=== PATIENT | female | born 1945 | race Caucasian/White ===

== ENCOUNTER 2016-05-02 01:32 | Inpatient (IN) | payer MEDICARE, OTHER ==
[~2016-05-02] VITALS: Ht 160 cm; Wt 136.7 kg
[~2016-05-02 01:32] MED LIST: ALTA10CA3 PO; ALTA5CAP3 PO; AMLO10TA PO; ASPI1TAB PO; ATIV1TAB10 PO; BACITAB3 PO; CARV12.5 PO; CARV25TA PO; CHLO25TA PO; CIPR500S PO; CIPR500T89 PO; CORE6.25 PO; ESCI10TA2 PO; IBUP20TA PO; IBUP80TA PO; K-TA1TAB PO; KEFL500C7 PO; LASI20TA PO; LASI40TA PO; LEVA500T PO; LIDO5DIS36 TD; LOVE1INJ2 SC; LYRI75CA PO; MICR10CA PO; MILKSUS PO; MIRA3350 PO; MORP20SO PO; MORP2SY IV; NEUR300C PO; NYST100024 TOP; OXYC1TAB23 PO; PERC5TAB6 PO; PERCOCET PO; POTA20TA PO; PROT1TAB2 PO; RAMI10CA PO; RAMI5CA PO; ROPI1TAB PO; SENN8.6T54 PO; SENN8.6T7 PO; SENO8.6T10 PO; TYLE325T5 PO; VITMTA PO; ZANA4CAP PO; ZANA4TAB PO; ZOFR20TA IV; ZOFR40IN IJ; [UNRECOGNIZED DRUG - OTHER]; [UNRECOGNIZED DRUG - REMARK]; omnicef PO
[2016-05-02] MEDS ORDERED: PERCOCET 5MG/325MG TAB As Ordered ONE (03:01)
[2016-05-02 03:03] LABS: BASO # 0.2 K/mm3 (0.0-0.2); BASO % 0.8 % (0.0-1.0); EOS % 0.3 % (0.0-3.0); LARGE UNSTAINED CELL # 0.1 K/mm3 (0.0-0.4); LARGE UNSTAINED CELL % 0.6 % (0.0-4.0); LYMPH # 0.5 K/mm3 (1.5-4.5); LYMPH % 2.2 % (24.0-44.0); MEAN CORPUSCULAR HEMOGLOBIN 26.5 pg (27.0-33.0); MEAN CORPUSCULAR HGB CONC 31.7 g/dl (32.0-36.5); MEAN CORPUSCULAR VOLUME 83.6 fl (80.0-96.0); MONO # 0.7 K/mm3 (0.0-0.8); NEUTROPHILS # 16.6 K/mm3 (1.8-7.7); NEUTROPHILS % 92.1 % (36.0-66.0); PLATELET COUNT, AUTOMATED 147 k/mm3 (150-450); RED CELL DISTRIBUTION WIDTH 15.6 % (11.5-14.5)
[2016-05-02 03:05] LABS: CREATININE FOR GFR 1.24 MG/DL (0.55-1.02); GLOMERULAR FILTRATION RATE 45.7 (>45)
--- NOTE | 2016-05-02 05:20 | REPUSA ---
CLINICAL HISTORY: Edema. COMMENTS: Real time sonography with duplex doppler of the left lower extremity was performed with attention to the major deep venous structures. Evaluation reveals the left common femoral, superficial femoral and popliteal veins to be completely compressible without intraluminal thrombus. There is normal spontaneous phasic flow and augmentation. The greater saphenous/common femoral vein junction is patent. IMPRESSION: No evidence of DVT in left lower extremity.. Thank you for your kind referral of this patient.
[2016-05-02] MEDS ORDERED: ALTA5CAP3 PO (07:55)
[2016-05-02] MEDS ORDERED: MIRA3350 PO (07:56)
[2016-05-02] MEDS ORDERED: ACETAMINOPHEN 325 MG TAB As Ordered ONE ×2 (07:57→14:37)
--- NOTE | 2016-05-02 08:25 | REP ---
AP sitting and lateral chest radiographs 05/02/2016 Indication shortness of breath Comparison: AP and lateral chest radiograph 02/24/2016, and PA and lateral chest 02/13/2016 The cardiac silhouette is mildly enlarged without change there is persistent ectasia of thoracic aorta. There are diminished lung volumes . There is persistent eventration of the right hemidiaphragm .Bibasilar atelectatic changes are noted. Interstitial prominence is contributed to by portable technique and large body habitus. There are moderate to advanced degenerative changes in the thoracic spine Impression: Mild cardiomegaly without change. Bibasilar atelectasis. Prominence of the interstitium contributed to by portable technique and large body habitus. Signed by Pebbles Lo MD 05/02/2016 08:17 A
[2016-05-02 08:38] LABS: ALBUMIN 4.1 GM/DL (3.2-5.2); ALBUMIN/GLOBULIN RATIO 1.24 (1.00-1.93); BILIRUBIN,DIRECT 0.3 MG/DL (0.0-0.2); THYROXINE (T4) 10.6 UG/DL (4.5-12.0); TOTAL PROTEIN 7.4 GM/DL (6.4-8.2)
--- NOTE | 2016-05-02 08:48 | REP ---
Left tibia and fibula series l 16 Indication: Trauma Findings: Study is somewhat limited by patient positioning and overlying pacer splint The left tibial and fibular shafts are without fracture or dislocation. There is moderate tricompartment joint space narrowing within the knee. There is a large plantar calcaneal spur. Vascular calcifications, likely phleboliths identified within the left lower leg Impression: No acute fracture dislocation in the left tibial and fibular shaft. Signed by Pebbles Lo MD 05/02/2016 08:40 A
[2016-05-02] MEDS ORDERED: ISOVUE-370 76% 100ML VIAL (Q9967) As Ordered ONE (09:40)
--- NOTE | 2016-05-02 10:44 | REP ---
CTA chest 05/02/2016 Indication: Hypoxia, shortness of breath Technique: Following dynamic IV contrast enhancement with 75 ml Isovue 370 mg/ml, 3 mm contiguous spiral axial sections are performed through the chest Findings: The study is limited by large body habitus and extensive streak artifact. The thoracic aorta is without aneurysm or dissection. The study is somewhat limited by streak artifact and large body habitus. The cardiac silhouette is mildly enlarged. The pulmonary arteries are opacified through at least the lobe are pulmonary artery levels without intraluminal filling defects. The more peripheral pulmonary arteries are limited in visualization. There are scattered mediastinal nodes , mildly enlarged. There are no pathologically enlarged hilar nodes. There is dependent atelectasis within the lower lobes primarily, and to a lesser extent the dependent portion of the upper lobes. There are no alveolar infiltrates or pleural effusions. Prominence of pulmonary vasculature system with pulmonary venous hypertension. Visualized portions of liver without focal lesion. The spleen mildly enlarged 13.4 cm cranial caudal dimension. Lies portions of gallbladder without stones Impression: Limited study due to large body habitus and extensive streak artifact especially within the superior vena cava. The pulmonary arteries are opacified through the lobar artery levels bilaterally without visualized filling defect . The more peripheral pulmonary arteries cannot be adequately assessed due to limitations described above. May consider follow-up study. Bibasilar atelectasis. Pulmonary venous hypertension Mild splenomegaly Discussed with Dr. Mcarthur in ED on 05/02/16 at 1030 am Signed by Pebbles Lo MD 05/02/2016 10:37 A
[2016-05-02] MEDS: PIPERACILLIN/TAZOBACTAM SOD 3.375 GM in D5W MINI-BAG PLUS 50 ML IV SCH ×2 (14:00→20:17)
[2016-05-02] MEDS ORDERED: ZOSYN 3.375 GM VIAL (J2543) As Ordered ONE (14:23)
--- NOTE | 2016-05-02 14:23 | PHACANCOPD ---
PHARMACY VANCOMYCIN DOSING Pt Demographics Demographics Patient Age:71 , Weight:113.400 , Gender: female Adjusted Body Weight Date: 05/02/16, Adjusted Body Weight: Kg Events Past 24 Hours Events Past 24 Hours: NO: Change in CrCl, Dialysis, Diuretic Therapy, Elevation in WBC, Fever, Other, Pending Diagnostics, Pending Procedures Vancomycin Vancomycin indication: CELLULITIS Vancomycin Target Ranges: 15-20 mcg/ml Vancomycin Load Y/N: Yes Load Dose Date Time Vancomycin Load Dose: 2GRAMS Date: 07/03/15 Time: 1413 Vancomycin Dose Date: 05/03/16. Current Vancomycin Dose: [1GRAM IV Q18H @0900] Intermittent Dosing?: No Labs Labs Item Value Date Time White Blood Count 18.0 K/mm3 H 05/02/16 0155 Creatinine 1.24 MG/DL H 05/02/16 0155 Micro Microbiology 05/02/16 Blood Culture, Received Pending 05/02/16 Blood Culture, Received Pending 05/02/16 Influenza Virus Type A Antigen - Final, Complete 05/02/16 Influenza Virus Type B Antigen - Final, Complete 05/02/16 Urine Culture, Received Pending Creatinine Clearance Date:05/02/16. Creatinine Clearance: [38.12]. Pending Labs VANCO TROUGH 05/04/16 @1999 Assessment and Plan Maintaining Current Dose?: Yes Reason for dose change: No Dose Change Pharmacist Note Pharmacist Note Date: 05/02/16. Pharmacist note: Patient will be administered a 2 gram loading dose followed by 1 gram every 18 hours starting tomorrow ( 05/03 @0900). Trough is scheduled for 05/04 @1999. Blood and urine cultures are pending. Dosing was based on a previous admission in February in which the patient was ordered on vanco. Continue current dosing and adjust as needed. MILDRED [facility] May 02, 2016 14:23
[2016-05-02] MEDS ORDERED: hydrALAZINE INJ 20 MG/ML VIAL As Ordered ONE (14:37)
[2016-05-02] MEDS ORDERED: CARVedilol 6.25 MG TAB As Ordered ONE (14:37)
[2016-05-02] MEDS ORDERED: RAMIPRIL 5 MG CAP As Ordered ONE (14:37)
[2016-05-02] MEDS ORDERED: SENOKOT S TAB PO PRN (14:45)
[2016-05-02] MEDS ORDERED: MIRALAX *UNIT DOSE* 17GM PACKET PO PRN (14:45)
[2016-05-02] MEDS: VANCOMYCIN HCL 1,000 MG, VIAL MATE ADAPTER 1 EACH in D5W 250 ML IV SCH (15:00)
[2016-05-02] MEDS ORDERED: VANCOMYCIN HCL 1,000 MG, VIAL MATE ADAPTER 1 EACH in D5W 250 ML IV ONE (16:00)
[2016-05-02] MEDS ORDERED: VANCOMYCIN 1000 MG/20 ML VIAL (J3370) As Ordered ONE (16:03)
--- NOTE | 2016-05-02 16:17 | EDDOCDS ---
Nurse's Notes [facility] Name: Mirella Fournier Age: 71 yrs Sex: Female : 1945 Arrival Date: 05/02/2016 Time: 01:32 Bed 9 Private MD: Alo eDy B Diagnosis: Fever of other and unknown origin Presentation: 05/02 01:36 Presenting complaint: EMS states: pt was moving pt from bathroom back into her chair. mlc pt missed the chair and lowered her to the floor. states pt was weak on the left side. EMS found no symptoms. pt c/o weakness. Adult Sepsis Screening: The patient does not have new or worsening altered mentation. Patient's respiratory rate is less than 22. Systolic blood pressure is greater than 100. Patient has a qSOFA score of 0- Negative Sepsis Screen. Suicide/Homicide risk assessment- the patient denies having any suicidal and/or homicidal ideations and does not present with any other emotional, behavioral or mental health complaints. 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 Transition of care: patient was not received from another setting of care. 01:36 Acuity: [place] Level 3 [facility] 01:36 Method Of Arrival: Ambulance [facility] Triage Assessment: 01:45 General: Appears in no apparent distress, comfortable, Behavior is cooperative, mlc pleasant. Pain: Location: low back area, pelvis, right leg and left leg Pain currently is 6 out of 10 on a pain scale. The patient is triaged at the bedside. See Assessment in Nurses Notes section of ED record. Neurological: Level of Consciousness is awake, alert, obeys commands, Oriented to person, place, time. Neurological: Reports headache. Respiratory: Airway is patent Respiratory effort is even, unlabored, Respiratory pattern is regular. GI: Reports nausea. Derm: Skin is normal. Historical: - Allergies: SULFA (SULFONAMIDES); - Home Meds: 1. Altace 5 mg Oral cap 1 cap once daily 2. aspirin 81 mg Oral chew 1 tab once daily 3. Ativan 0.5 mg Oral tab 1 tab 3 times per day as needed 4. carvedilol 25 mg oral tab 2 times per day 5. furosemide 40 mg oral tab 1 tab 2 times per day 6. Lexapro 10 mg Oral tab 1 tab once daily 7. Lyrica 75 mg Oral 1 cap 2 times per day 8. Miralax 17 gram/dose Oral powd once daily 9. multivitamin Oral cap 1 tab daily 10. Percocet 5-325 mg Oral tab 1 tab every 8 hours 11. potassium chloride 20 mEq Oral TbER 1 tab once daily 12. Protonix 40 mg oral TbEC 1 tab once daily 13. ropinirole 1 mg oral tab 3 times per day 14. Senna Plus 8.6-50 mg oral tab 1 tabs once daily - PMHx: Hypertension; intevertebral disc displacement; Spinal Stenosis; Parkinson's Disease; spondylosis; - PSHx: eye surgery; Tonsillectomy; - Social history: Smoking status: Patient states was never smoker of tobacco. No barriers to communication noted, The patient speaks fluent Macanese. - Family history: Not pertinent, No immediate family members are acutely ill. - : The pt / caregiver states he / she is not on anticoagulants. Home medication list is obtained from the patient, [email or web address] import data. - Exposure Risk Screening:: None identified. Screenin:46 Screening information is obtained from the patient, family members. Fall risk: At risk mlc due to gait disturbance, prior history of falls. Assistance ADL's: Requires assistance with meal preparation, this assistance is provided by family members, bathing, assistance is provided by family members, dressing, assistance is provided by family members, toileting, assistance is provided by housework, assistance is provided by family members. Abuse/DV Screen: The patient / caregiver reports he/she is: not in a situation that causes fear, pain or injury. Nutritional screening: No deficits noted. Advance Directives: Currently, there is no health care proxy. There is no active DNR order. There is no living will. There is no Power of Cook Mess. home support is adequate. Assessment: 01:51 General: Appears in no apparent distress, comfortable, Behavior is cooperative. Pain: mlc Pain currently is 6 out of 10 on a pain scale. Neurological: Level of Consciousness is awake, alert, Oriented to person, place, time, Helicopter Engineer are equal bilaterally Speech is normal, Facial symmetry appears normal, Pupils are PERRLA. Cardiovascular: Heart tones S1 S2 present. Respiratory: Airway is patent Respiratory effort is even, unlabored, Respiratory pattern is regular, Breath sounds are diminished bilaterally. GI: Abdomen is obese, Bowel sounds present X 4 quads. Abd is soft and non tender X 4 quads. Derm: Skin is normal. 02:35 Adult Sepsis Screening:. js15 03:26 Derm: Skin excoriated area under abdominal fold. mlc 03:49 Adult Sepsis Screening: The patient does not have new or worsening altered mentation. [facility] Patient's respiratory rate is less than 22. Systolic blood pressure is greater than 100. Patient has a qSOFA score of 0- Negative Sepsis Screen. 04:46 Reassessment: Patient appears in no apparent distress at this time. no changes since [facility] prior. pt resting comfortably in bed. resp easy/unlabored. . 07:15 General: Appears ill, Behavior is cooperative. Pain: Location: all over Pain currently mcp is 5 out of 10 on a pain scale. Neurological: Level of Consciousness is awake, alert, Oriented to person, place, time, Speech is normal. Cardiovascular: Rhythm is sinus rhythm No ectopy. Respiratory: Airway is patent Respiratory effort is even, labored. Derm: Skin is dry, Skin is pink, Skin temperature is warm. 08:15 General: Appears ill, Behavior is cooperative. Neurological: Level of Consciousness is mcp awake, alert, Oriented to person, place, time, Speech is normal. Respiratory: Airway is patent Respiratory effort is even, labored. Derm: Skin is pink, warm & dry. 09:10 General: Appears in no apparent distress, to be sleeping. Behavior is cooperative, jo3 quiet. General: Awaiting admission at this time . Neurological: No deficits noted. Cardiovascular: Rhythm is sinus rhythm No ectopy. Respiratory: Airway is patent Respiratory effort is even, unlabored. Derm: Skin is pink, warm & dry. 10:12 Reassessment: Patient appears in no apparent distress at this time. Taken to Ct for jo3 angio study at this time. Tolerated well. returned to room and positioned for comfort by this chart writer and Karen Davis, OCEANOLOGIST. Admission nurse now at bedside. Pt aware of plan of care . 11:30 General: Appears in no apparent distress, incontinent of urine. lower abdominal fold, rs3 inguinal area and perineal area has excoriated skin. skin care given. repositioned patient in bed. 12:30 General: Appears in no apparent distress, Behavior is cooperative, denies of distress. rs3 at bedside. waiting for admission room availability. Temp 100.2. cold wash cloth applied to forehead. 13:13 Reassessment: Patient appears in no apparent distress at this time. Patient denies pain rs3 at this time. Patient states feeling better. Patient states symptoms have improved. 14:30 General: Appears in no apparent distress, Behavior is cooperative, Temp rechecked. rs3 101.6. blood pressure systolic 183/74. attending provider made aware. ordered meds given. 15:30 General: Appears in no apparent distress, denies of pain/distress. refused lunch. rs3 ordered antibiotic infusing. . 16:15 Reassessment: Patient appears in no apparent distress at this time. Patient denies pain rs3 at this time. Patient states feeling better. Patient states symptoms have improved. General:. Social Work Consult: 06:37 Social Work Note: [facility] Transportation has been paged to discuss assisting PT with jfb transport home. Vital Signs: 01:43 BP 177 / 81; Pulse 93; Resp 18; Temp 98.7(O); Pulse Ox 88% on R/A; Weight 113.4 kg (R); rn1 Height 5 ft. 3 in. (160.02 cm); Pain 6/10; 01:50 Pulse 94 MON; Pulse Ox 97% on 2 lpm NC; js15 01:58 BP 179 / 73 (auto/); mlc 01:59 Pulse 88 MON; Pulse Ox 96% ; mlc 02:13 BP 170 / 64 (auto/); mlc 02:14 Pulse 90 MON; Pulse Ox 94% ; mlc 02:28 BP 158 / 71 (auto/); mlc 02:29 Pulse 86 MON; Pulse Ox 94% ; mlc 02:43 BP 150 / 57 (auto/); mlc 02:44 Pulse 100 MON; Pulse Ox 95% ; mlc 02:58 BP 139 / 65 (auto/); mlc 02:59 Pulse 98 MON; Pulse Ox 94% ; mlc 03:13 BP 152 / 68 (auto/); mlc 03:14 Pulse 102 MON; Pulse Ox 92% ; mlc 03:28 BP 129 / 60 (auto/); mlc 03:29 Pulse 96 MON; Pulse Ox 92% ; mlc 03:43 BP 116 / 55 (auto/); mlc 03:44 Pulse 82 MON; Pulse Ox 92% ; mlc 03:58 BP 115 / 55 (auto/); mlc 04:13 BP 100 / 52 (auto/); mlc 04:28 BP 111 / 55 (auto/); mlc 04:31 Pulse 78 MON; Pulse Ox 93% ; mlc 04:43 BP 126 / 60 (auto/); mlc 04:44 Pulse 82 MON; Pulse Ox 94% ; mlc 08:09 BP 147 / 95; Pulse 76; Resp 32; Temp 101.2(O); Pulse Ox 85% on R/A; mcp 08:10 Pulse Ox 95% on 4 lpm NC; mcp 11:37 BP 140 / 63 (auto/); rs3 11:37 Pulse 90 MON; rs3 12:07 BP 145 / 65 (auto/); rs3 12:07 Pulse 90 MON; rs3 12:37 BP 158 / 71 (auto/); rs3 12:38 Pulse 88 MON; Pulse Ox 95% ; rs3 13:07 BP 166 / 73 (auto/); rs3 13:08 Pulse 86 MON; Resp 20; Pulse Ox 96% ; rs3 13:14 Temp 100.2; rs3 13:37 BP 187 / 75 (auto/); rs3 13:38 Pulse 88 MON; Pulse Ox 95% ; rs3 14:07 BP 183 / 77 (auto/); rs3 14:08 BP 166 / 75; Pulse 86 MON; Resp 22; Temp 100.6; Pulse Ox 95% on NC; Pain 2/10; rs3 14:37 BP 186 / 74 (auto/); rs3 14:38 Pulse 86 MON; Temp 101.6(O); rs3 14:52 BP 178 / 73 (auto/); rs3 14:53 Pulse 88 MON; Pulse Ox 94% ; rs3 15:03 Pulse 88 MON; Pulse Ox 96% ; rs3 15:07 BP 167 / 71 (auto/); rs3 15:08 Pulse 88 MON; Pulse Ox 95% ; rs3 15:22 BP 135 / 60 (auto/); rs3 15:22 Pulse 86 MON; Pulse Ox 94% ; rs3 15:37 BP 119 / 56 (auto/); rs3 15:38 Pulse 84 MON; Pulse Ox 95% ; rs3 15:58 BP 113 / 58 (auto/); rs3 15:58 BP 113 / 58; Pulse 90 MON; Resp 24; Temp 100.2; Pulse Ox 96% ; rs3 16:09 Temp 100.2(O); rs3 01:43 Body Mass Index 44.29 (113.40 kg, 160.02 cm) rn1 Vitals: 01:45 Log In Time N/A - ambulance arrival. [facility] ED Course: 01:34 Patient visited by Orlin Robert PCA. kb5 01:34 Alo Dey is Private Physician. kb5 01:34 Patient moved to Waiting kb5 01:34 Patient moved to 9 kb5 01:41 Triage Initiated mlc 01:46 child monitor on. Pulse ox on. NIBP on. mlc 01:48 Patient visited by Helen Zapata RN. mlc 01:49 Rajan Welsh DO is Attending Physician. cs11 01:49 Patient visited by Rajan Welsh DO. cs11 01:56 Inserted saline lock: 18 gauge in right antecubital area The patient tolerated the js15 procedure well. 01:57 Patient visited by Helen Zapata RN. mlc 01:58 The patient / caregiver is instructed regarding the plan of care and ED course. [facility] 02:05 [facility] Payment Agreement was scanned into [employer] and attached to record. lja 02:11 Patient name changed from Mirella\S\\S\Fournier\S\ to Mirella\S\A\S\Fournier. EDMS 03:07 Patient moved to Ultrasound br3 03:17 Patient moved to 9 br3 03:26 Urine Culture Sent. mlc 03:26 Urinalysis: catheterize. thanks Sent. mlc 03:26 Straight cath inserted 16 Fr. Specimen obtained. returned clear yellow urine. Patient [facility] tolerated well. 03:27 Patient visited by Helen Zapata RN. mlc 04:48 Patient visited by Helen Zapata RN. mlc 04:52 Alo Dey is Referral Physician. cs11 05:29 Ultrasound LE Unilateral R/O DVT Returned. EDMS 07:16 Attending Physician role handed off by Rajan Welsh DO sd1 07:16 Azucena Robertson MD is Attending Physician. sd1 08:12 Patient visited by Adrienne Bourne RN. [facility] 08:12 Inserted saline lock: 20 gauge in left antecubital area and blood collected. The [facility] patient tolerated the procedure well. Labs drawn. (by ED staff). Sent per order to lab. Labs/Blood culture drawn. 08:16 Patient visited by Adrienne Bourne RN. [facility] 08:43 Chest, 2 View (pa\E\lat) Returned. EDMS 09:23 Tibia/Fibula Returned. EDMS 09:29 Patient visited by Myrtle Apodaca RN. jo3 09:42 Lashay Carcamo is Hospitalizing Provider. sd1 09:47 PCR was scanned into [employer] and attached to record. gb 10:13 Patient visited by Myrtle Apodaca RN. jo3 10:46 CT Chest Angio R/O PE Returned. EDMS 11:00 Ketty Harp,RICCARDO is Primary Nurse. rs3 12:47 No procedures done that require assistance. rs3 14:22 T-Sheet-- Draft Copy was scanned into [employer] and attached to record. gb 14:55 Radiology Report was scanned into [employer] and attached to record. gb Administered Medications: 03:05 Drug: oxyCODONE-acetaminophen 1 tabs [oxycodone-acetaminophen 5 mg-325 mg tablet (1 mlc tabs)] Route: PO; 08:09 Drug: Acetaminophen 650 mg [acetaminophen 325 mg tablet (2 tabs)] Route: PO; [facility] 13:14 Follow up: Temp 100.2 rs3 14:45 Drug: carvedilol 25 mg [carvedilol 6.25 mg tablet (4 tabs)] Route: PO; rs3 14:45 Drug: Ramipril 5 mg [ramipril 5 mg capsule (1 caps)] Route: PO; rs3 14:45 Drug: hydrALAZINE 10 mg [hydralazine 20 mg/mL injection solution] Route: IV; Rate: rs3 bolus; Site: left antecubital; 16:09 Follow up: IV Status: Completed infusion rs3 14:46 Drug: Piperacillin-Tazobactam 3.375 grams [piperacillin-tazobactam 3.375 gram rs3 intravenous solution] Route: IVPB; Infused Over: 30 mins; Site: left antecubital; 16:09 Follow up: IV Status: Completed infusion rs3 14:46 Drug: Acetaminophen 650 mg [acetaminophen 325 mg tablet (2 tabs)] Route: PO; rs3 16:09 Follow up: Temp 100.2 Oral rs3 16:08 Drug: vancomycin 1 grams [vancomycin 1,000 mg intravenous injection] Route: IVPB; rs3 Infused Over: 60 mins; Site: left antecubital; Order Results: Lab Order: CBC with Diff; SPEC'M 05/02/16 01:55 Test: WHITE BLOOD COUNT; Value: 18.0; Range: 4.0-10.0; Abnormal: Above high normal; Units: K/mm3; Status: F Test: RED BLOOD COUNT; Value: 4.93; Range: 4.00-5.40; Units: M/mm3; Status: F Test: HEMOGLOBIN; Value: 13.0; Range: 12.0-16.0; Units: g/dl; Status: F Test: HEMATOCRIT; Value: 41.2; Range: 36.0-47.0; Units: %; Status: F Test: MEAN CORPUSCULAR VOLUME; Value: 83.6; Range: 80.0-96.0; Units: fl; Status: F Test: MEAN CORPUSCULAR HEMOGLOBIN; Value: 26.5; Range: 27.0-33.0; Abnormal: Below low normal; Units: pg; Status: F Test: MEAN CORPUSCULAR HGB CONC; Value: 31.7; Range: 32.0-36.5; Abnormal: Below low normal; Units: g/dl; Status: F Test: RED CELL DISTRIBUTION WIDTH; Value: 15.6; Range: 11.5-14.5; Abnormal: Above high normal; Units: %; Status: F Test: PLATELET COUNT, AUTOMATED; Value: 147; Range: 150-450; Abnormal: Below low normal; Units: k/mm3; Status: F Test: NEUTROPHILS %; Value: 92.1; Range: 36.0-66.0; Abnormal: Above high normal; Units: %; Status: F Test: LYMPH %; Value: 2.2; Range: 24.0-44.0; Abnormal: Below low normal; Units: %; Status: F Test: MONO %; Value: 4.0; Range: 0.0-5.0; Units: %; Status: F Test: EOS %; Value: 0.3; Range: 0.0-3.0; Units: %; Status: F Test: BASO %; Value: 0.8; Range: 0.0-1.0; Units: %; Status: F Test: LARGE UNSTAINED CELL %; Value: 0.6; Range: 0.0-4.0; Units: %; Status: F Test: NEUTROPHILS #; Value: 16.6; Range: 1.8-7.7; Abnormal: Above high normal; Units: K/mm3; Status: F Test: LYMPH #; Value: 0.5; Range: 1.5-4.5; Abnormal: Below low normal; Units: K/mm3; Status: F Test: MONO #; Value: 0.7; Range: 0.0-0.8; Units: K/mm3; Status: F Test: EOS #; Value: 0.0; Range: 0.0-0.50; Units: K/mm3; Status: F Test: BASO #; Value: 0.2; Range: 0.0-0.2; Units: K/mm3; Status: F Test: LARGE UNSTAINED CELL #; Value: 0.1; Range: 0.0-0.4; Units: K/mm3; Status: F Lab Order: MED Profile; [facility]' 05/02/16 01:55 Test: GLUCOSE, FASTING; Value: 132; Range: 80-110; Abnormal: Above high normal; Units: MG/DL; Status: F Test: BLOOD UREA NITROGEN; Value: 21; Range: 7-18; Abnormal: Above high normal; Units: MG/DL; Status: F Test: CREATININE FOR GFR; Value: 1.24; Range: 0.55-1.02; Abnormal: Above high normal; Units: MG/DL; Status: F Test: GLOMERULAR FILTRATION RATE; Value: 45.7; Range: >45; Status: F Test: SODIUM LEVEL; Value: 143; Range: 136-145; Units: MEQ/L; Status: F Test: POTASSIUM SERUM; Value: 5.0; Range: 3.5-5.1; Units: MEQ/L; Status: F Test: CHLORIDE LEVEL; Value: 104; Range: 98-107; Units: MEQ/L; Status: F Test: CARBON DIOXIDE LEVEL; Value: 29; Range: 21-32; Units: MEQ/L; Status: F Test: ANION GAP; Value: 10; Range: 8-16; Units: MEQ/L; Status: F Test: CALCIUM LEVEL; Value: 9.0; Range: 8.8-10.2; Units: MG/DL; Status: F Test Note: ; Units are mL/min/1.73 m2 Chronic Kidney Disease Staging per NKF: Stage I & II GFR >=60 Normal to Mildly Decreased Stage III GFR 30-59 Moderately Decreased Stage IV GFR 15-29 Severely Decreased Stage V GFR <15 Very Little GFR Left ESRD GFR <15 on [employer] Lab Order: Urinalysis: catheterize. thanks; SPEC'M 05/02/16 03:21 Test: APPEARANCE, URINE; Value: CLEAR; Range: CLEAR; Status: F Test: COLOR, URINE; Value: YELLOW; Range: YELLOW; Status: F Test: PH,URINE; Value: 7.0; Range: 5.0-9.0; Units: UNITS; Status: F Test: SPECIFIC GRAVITY URINE AUTO; Value: 1.016; Range: 1.002-1.035; Status: F Test: PROTEIN, URINE AUTO; Value: NEGATIVE; Range: NEGATIVE; Units: mg/dL; Status: F Test: GLUCOSE, URINE (UA) AUTO; Value: NEGATIVE; Range: NEGATIVE; Units: mg/dL; Status: F Test: KETONE, URINE AUTO; Value: TRACE; Range: NEGATIVE; Abnormal: Above high normal; Units: mg/dL; Status: F Test: UROBILINOGEN, URINE AUTO; Value: 0.2; Range: 0.0-2.0; Units: mg/dL; Status: F Test: BILIRUBIN, URINE AUTO; Value: NEGATIVE; Range: NEGATIVE; Status: F Test: NITRITE, URINE AUTO; Value: NEGATIVE; Range: NEGATIVE; Status: F Test: LEUKOCYTE ESTERASE, URINE AUTO; Value: NEGATIVE; Range: NEGATIVE; Status: F Test: BLOOD, URINE BLOOD; Value: NEGATIVE; Range: NEGATIVE; Status: F Test: WBC, URINE AUTO; Value: 0; Range: 0-3; Units: /HPF; Status: F Test: RBC, URINE AUTO; Value: 1; Range: 0-3; Units: /HPF; Status: F Test: BACTERIA, URINE AUTO; Value: NEGATIVE; Range: NEGATIVE; Status: F Test: SQUAMOUS EPITHELIAL CELL UR AU; Value: 0; Range: 0-6; Units: /HPF; Status: F Test: MUCUS, URINE; Value: SMALL; Range: NEGATIVE; Status: F Test: HYALINE CAST, URINE AUTO; Value: 0; Range: 0-1; Units: /LPF; Status: F Lab Order: Lactic Acid (Crouch tube on ice); SPEC'M 05/02/16 07:53 Test: LACTIC ACID LEVEL, LACTATE; Value: 1.3; Range: 0.4-2.0; Units: MMOL/L; Status: F Lab Order: -Influenza A&B Rapid Antigen - Nose; SPEC'M 05/02/16 07:53 Test: INFLUENZA A RAPID SCR by ICA; Value: INFLUENZA A RESULTS NEGATIVE; Status: F Test: INFLUENZA A RAPID SCR by ICA; Value: Comments:; Status: F Test: INFLUENZA B RAPID SCR by ICA; Value: INFLUENZA B RESULTS NEGATIVE; Status: F Test Note: ; The Influenza test is a direct rapid immunoassay for the qualitative detection of Influenza viral antigen. Cell culture (Viral Culture) testing should be considered to confirm NEGATIVE results and to assist in detecting other viruses that can provide similar clinical symptoms. Please contact the lab within 24 [phone] ([phone] if confirmatory testing is desired. Lab Order: Liver Profile; SPEC'M 05/02/16 07:53 Test: AST/SGOT; Value: 18; Range: 15-37; Units: U/L; Status: F Test: ALT/SGPT; Value: 18; Range: 12-78; Units: U/L; Status: F Test: ALKALINE PHOSPHATASE; Value: 100; Range: 45-117; Units: U/L; Status: F Test: BILIRUBIN,TOTAL; Value: 1.0; Range: 0.2-1.0; Units: MG/DL; Status: F Test: BILIRUBIN,DIRECT; Value: 0.3; Range: 0.0-0.2; Abnormal: Above high normal; Units: MG/DL; Status: F Test: TOTAL PROTEIN; Value: 7.4; Range: 6.4-8.2; Units: GM/DL; Status: F Test: ALBUMIN; Value: 4.1; Range: 3.2-5.2; Units: GM/DL; Status: F Test: ALBUMIN/GLOBULIN RATIO; Value: 1.24; Range: 1.00-1.93; Status: F Lab Order: Lipase; SPEC'M 05/02/16 07:53 Test: LIPASE; Value: 86; Range: 73-393; Units: U/L; Status: F Lab Order: THYROID PROFILE; SPEC'M 05/02/16 07:53 Test: T UPTAKE; Value: 31; Range: 30-39; Units: %; Status: F Test: THYROXINE (T4); Value: 10.6; Range: 4.5-12.0; Units: UG/DL; Status: F Test: FREE THYROXINE INDEX; Value: 3.3; Range: 1.3-4.8; Units: %; Status: F Test: THYROID STIMULATING HORMONE; Value: 2.200; Range: 0.358-3.740; Units: uIU/ML; Status: F Lab Order: LACTIC ACID LEVEL, LACTATE; SPEC'M 05/02/16 14:38 Test: LACTIC ACID LEVEL, LACTATE; Value: 1.1; Range: 0.4-2.0; Units: MMOL/L; Status: F Radiology Order: Tibia/Fibula Test: Tibia/Fibula REASON FOR EXAMINATION: Trauma; Left tibia and fibula series ; ; Indication: Trauma; ; Findings: Study is somewhat limited by patient positioning and overlying pacer; splint; ; The left tibial and fibular shafts are without fracture or dislocation. There is; moderate tricompartment joint space narrowing within the knee. There is a large; plantar calcaneal spur.; ; Vascular calcifications, likely phleboliths identified within the left lower leg; ; Impression:; ; No acute fracture dislocation in the left tibial and fibular shaft.; ; ; Signed by; Pebbles Lo MD 05/02/2016 08:40 A; Radiology Order: Ultrasound LE Unilateral R/O DVT Test: Ultrasound LE Unilateral R/O DVT REASON FOR EXAMINATION: Deformity/Swelling; ; CLINICAL HISTORY: Edema.; COMMENTS:; Real time sonography with duplex doppler of the left lower extremity was performed with attention to; the major deep venous structures.; Evaluation reveals the left common femoral, superficial femoral and popliteal veins to be completely; compressible without intraluminal thrombus. There is normal spontaneous phasic flow and augmentation.; The greater saphenous/common femoral vein junction is patent.; IMPRESSION:; No evidence of DVT in left lower extremity..; Thank you for your kind referral of this patient.; ; Radiology Order: Chest, 2 View (pa\E\lat) Test: Chest, 2 View (pa\E\lat) REASON FOR EXAMINATION: Shortness of Breath; AP sitting and lateral chest radiographs 05/02/2016; ; Indication shortness of breath; ; Comparison: AP and lateral chest radiograph 02/24/2016, and PA and lateral chest; 02/13/2016; ; The cardiac silhouette is mildly enlarged without change there is persistent; ectasia of thoracic aorta. There are diminished lung volumes . There is; persistent eventration of the right hemidiaphragm .Bibasilar atelectatic changes; are noted. Interstitial prominence is contributed to by portable technique and; large body habitus.; ; There are moderate to advanced degenerative changes in the thoracic spine; ; Impression:; ; Mild cardiomegaly without change. Bibasilar atelectasis. Prominence of the; interstitium contributed to by portable technique and large body habitus.; ; ; ; ; Signed by; Pebbles Lo MD 05/02/2016 08:17 A; Radiology Order: CT Chest Angio R/O PE Test: CT Chest Angio R/O PE REASON FOR EXAMINATION: hypoxia SOB; CTA chest 05/02/2016; ; Indication: Hypoxia, shortness of breath; ; Technique: Following dynamic IV contrast enhancement with 75 ml Isovue 370; mg/ml, 3 mm contiguous spiral axial sections are performed through the chest; ; Findings: The study is limited by large body habitus and extensive streak; artifact. The thoracic aorta is without aneurysm or dissection. The study is; somewhat limited by streak artifact and large body habitus. The cardiac; silhouette is mildly enlarged. The pulmonary arteries are opacified through at; least the lobe are pulmonary artery levels without intraluminal filling defects.; The more peripheral pulmonary arteries are limited in visualization. There are; scattered mediastinal nodes , mildly enlarged. There are no pathologically; enlarged hilar nodes.; ; There is dependent atelectasis within the lower lobes primarily, and to a lesser; extent the dependent portion of the upper lobes. There are no alveolar; infiltrates or pleural effusions. Prominence of pulmonary vasculature system; with pulmonary venous hypertension.; ; Visualized portions of liver without focal lesion. The spleen mildly enlarged; 13.4 cm cranial caudal dimension. Lies portions of gallbladder without stones; ; Impression:; ; Limited study due to large body habitus and extensive streak artifact especially; within the superior vena cava. The pulmonary arteries are opacified through the; lobar artery levels bilaterally without visualized filling defect . The more; peripheral pulmonary arteries cannot be adequately assessed due to limitations; described above. May consider follow-up study.; ; Bibasilar atelectasis. Pulmonary venous hypertension; ; Mild splenomegaly; ; Discussed with Dr. Mcarthur in ED on 05/02/16 at 1030 am; ; ; ; ; Signed by; Pebbles Lo MD 05/02/2016 10:37 A; Outcome: 04:53 Discharge ordered by Provider. cs11 09:42 Decision to Hospitalize by Provider. sd1 12:47 Condition: stable. rs3 16:10 Discharge Assessment: patient administered narcotics - no. The following High Risk 3 Discharge criteria are identified: None. Admitted to PCU accompanied by nurse, accompanied by tech, via stretcher, with oxygen, on monitor, with chart. No special radiology studies were completed. Admission hand-off: Report Faxed Fax receipt verified by unit staff. Property :Personal belongings accompany Pt. 16:16 Patient left the ED. rs3 Signatures: Dispatcher [employer] EDMS Azucena Robertson MD MD sd1 Adrienne Bourne, RN RN Catina Lynn, Devon Reg Myrtle Canela RN RN jo3 Orlin Robert, OCEANOLOGIST OCEANOLOGIST kb5 Ketty HarpRN RN rs3 Michelle Lou br3 oCnnie Sequeira, PSA PSA jfb Rajan Welsh, DO DO cs11 Helen Zapata,Kelli Valerio RN,RN RN Isaiah Barboza rn1 Erin Woodward Corrections: (The following items were deleted from the chart) 12:47 12:47 Discharge Assessment: patient administered narcotics - yes. Patient was admitted rs3 to the hospital or transferred to another facility. rs3 12:47 12:47 The following High Risk Discharge criteria are identified: None. Admitted to OR rs3 accompanied by nurse, family with patient, via stretcher, on monitor, with chart, rs3 12:47 12:47 No special radiology studies were completed 3 3 :47 12:47 Property :Personal belongings accompany Pt. rs3 3 1247 12:47 Admission hand-off: Report called to or staff 3 3 MTDD
--- NOTE | 2016-05-02 16:17 | EDDOCDS ---
Physician Documentation [facility] Name: Mirella Fournier Age: 71 yrs Sex: Female : 1945 Arrival Date: 05/02/2016 Time: 01:32 Bed 9 Private MD: Alo Dey B Disposition: 05/02/16 09:42 Hospitalization ordered by Lashay Carcamo for Inpatient Admission. Preliminary diagnosis is Fever of other and unknown origin. - Bed requested for PCU. - Status is Inpatient Admission. rs3 - Condition is Stable. - Problem is new. - Symptoms are unchanged. Historical: - Allergies: SULFA (SULFONAMIDES); - Home Meds: 1. Altace 5 mg Oral cap 1 cap once daily 2. aspirin 81 mg Oral chew 1 tab once daily 3. Ativan 0.5 mg Oral tab 1 tab 3 times per day as needed 4. carvedilol 25 mg oral tab 2 times per day 5. furosemide 40 mg oral tab 1 tab 2 times per day 6. Lexapro 10 mg Oral tab 1 tab once daily 7. Lyrica 75 mg Oral 1 cap 2 times per day 8. Miralax 17 gram/dose Oral powd once daily 9. multivitamin Oral cap 1 tab daily 10. Percocet 5-325 mg Oral tab 1 tab every 8 hours 11. potassium chloride 20 mEq Oral TbER 1 tab once daily 12. Protonix 40 mg oral TbEC 1 tab once daily 13. ropinirole 1 mg oral tab 3 times per day 14. Senna Plus 8.6-50 mg oral tab 1 tabs once daily - PMHx: Hypertension; intevertebral disc displacement; Spinal Stenosis; Parkinson's Disease; spondylosis; - PSHx: eye surgery; Tonsillectomy; - Social history: Smoking status: Patient states was never smoker of tobacco. No barriers to communication noted, The patient speaks fluent Sinhala. - Family history: Not pertinent, No immediate family members are acutely ill. - : The pt / caregiver states he / she is not on anticoagulants. Home medication list is obtained from the patient, miDrive import data. - Exposure Risk Screening:: None identified. Vital Signs: 05/02 01:43 BP 177 / 81; Pulse 93; Resp 18; Temp 98.7(O); Pulse Ox 88% on R/A; Weight 113.4 kg / rn1 250 lbs (R); Height 5 ft. 3 in. (160.02 cm); Pain 6/10; 01:50 Pulse 94 MON; Pulse Ox 97% on 2 lpm NC; js15 01:58 BP 179 / 73 (auto/); mlc 01:59 Pulse 88 MON; Pulse Ox 96% ; mlc 02:13 BP 170 / 64 (auto/); mlc 02:14 Pulse 90 MON; Pulse Ox 94% ; mlc 02:28 BP 158 / 71 (auto/); mlc 02:29 Pulse 86 MON; Pulse Ox 94% ; mlc 02:43 BP 150 / 57 (auto/); mlc 02:44 Pulse 100 MON; Pulse Ox 95% ; mlc 02:58 BP 139 / 65 (auto/); mlc 02:59 Pulse 98 MON; Pulse Ox 94% ; mlc 03:13 BP 152 / 68 (auto/); mlc 03:14 Pulse 102 MON; Pulse Ox 92% ; mlc 03:28 BP 129 / 60 (auto/); mlc 03:29 Pulse 96 MON; Pulse Ox 92% ; mlc 03:43 BP 116 / 55 (auto/); mlc 03:44 Pulse 82 MON; Pulse Ox 92% ; mlc 03:58 BP 115 / 55 (auto/); mlc 04:13 BP 100 / 52 (auto/); mlc 04:28 BP 111 / 55 (auto/); mlc 04:31 Pulse 78 MON; Pulse Ox 93% ; mlc 04:43 BP 126 / 60 (auto/); mlc 04:44 Pulse 82 MON; Pulse Ox 94% ; mlc 08:09 BP 147 / 95; Pulse 76; Resp 32; Temp 101.2(O); Pulse Ox 85% on R/A; mcp 08:10 Pulse Ox 95% on 4 lpm NC; mcp 11:37 BP 140 / 63 (auto/); rs3 11:37 Pulse 90 MON; rs3 12:07 BP 145 / 65 (auto/); rs3 12:07 Pulse 90 MON; rs3 12:37 BP 158 / 71 (auto/); rs3 12:38 Pulse 88 MON; Pulse Ox 95% ; rs3 13:07 BP 166 / 73 (auto/); rs3 13:08 Pulse 86 MON; Resp 20; Pulse Ox 96% ; rs3 13:14 Temp 100.2; rs3 13:37 BP 187 / 75 (auto/); rs3 13:38 Pulse 88 MON; Pulse Ox 95% ; rs3 14:07 BP 183 / 77 (auto/); rs3 14:08 BP 166 / 75; Pulse 86 MON; Resp 22; Temp 100.6; Pulse Ox 95% on NC; Pain 2/10; rs3 14:37 BP 186 / 74 (auto/); rs3 14:38 Pulse 86 MON; Temp 101.6(O); rs3 14:52 BP 178 / 73 (auto/); rs3 14:53 Pulse 88 MON; Pulse Ox 94% ; rs3 15:03 Pulse 88 MON; Pulse Ox 96% ; rs3 15:07 BP 167 / 71 (auto/); rs3 15:08 Pulse 88 MON; Pulse Ox 95% ; rs3 15:22 BP 135 / 60 (auto/); rs3 15:22 Pulse 86 MON; Pulse Ox 94% ; rs3 15:37 BP 119 / 56 (auto/); rs3 15:38 Pulse 84 MON; Pulse Ox 95% ; rs3 15:58 BP 113 / 58 (auto/); rs3 15:58 BP 113 / 58; Pulse 90 MON; Resp 24; Temp 100.2; Pulse Ox 96% ; rs3 16:09 Temp 100.2(O); rs3 01:43 Body Mass Index 44.29 (113.40 kg, 160.02 cm) rn1 MDM: 02:05 [facility] Payment Agreement was scanned into Pitz[employer] and attached to record. lja 02:05 Financial registration complete. lja 02:51 oxyCODONE-acetaminophen 5 mg-325 mg 1 tabs PO once ordered. cs11 02:52 CBC with Diff Ordered. EDMS 02:52 MED Profile Ordered. EDMS 02:52 Urinalysis: catheterize. thanks Ordered. EDMS 02:52 Urine Culture Ordered. EDMS 02:52 Tibia/Fibula Ordered. EDMS 02:53 Ultrasound LE Unilateral R/O DVT Ordered. EDMS 03:33 CBC with Diff Reviewed. cs11 03:33 MED Profile Reviewed. cs11 04:04 Urinalysis: catheterize. thanks Reviewed. cs11 07:17 -Blood Culture (Adults Only), peripheral from different site, or from device/port/PICC sd1 etc. if present ordered. 07:18 IV Saline Lock ordered. sd1 07:18 -Blood Culture Ordered. EDMS 07:18 Lactic Acid (Crouch tube on ice) Ordered. EDMS 07:18 -Influenza A&B Rapid Antigen - Nose Ordered. EDMS 07:18 Chest, 2 View (pa\E\lat) Ordered. EDMS 07:19 Liver Profile Ordered. EDMS 07:19 Lipase Ordered. EDMS 07:19 BED REQUEST+ADM ordered. EDMS 07:21 -Blood Culture (Adults Only), peripheral from different site, or from device/port/PICC deg etc. if present complete. 07:22 BLOOD CULTURES Ordered. EDMS 07:23 THYROID PROFILE Ordered. EDMS 07:28 Acetaminophen Tablet 650 mg PO once ordered. sd1 08:14 Ultrasound LE Unilateral R/O DVT Reviewed. sd1 08:42 Liver Profile Reviewed. sd1 08:42 Lactic Acid (Crouch tube on ice) Reviewed. sd1 08:42 -Influenza A&B Rapid Antigen - Nose Reviewed. sd1 08:42 Lipase Reviewed. sd1 08:42 THYROID PROFILE Reviewed. sd1 09:18 Chest, 2 View (pa\E\lat) Reviewed. sd1 09:20 CT Chest Angio R/O PE Ordered. EDMS 09:40 Tibia/Fibula Reviewed. sd1 09:47 PCR was scanned into Pitz[employer] and attached to record. gb 11:49 PHYSICAL THERAPY EVAL & TREAT ordered. EDMS 11:50 Admission / Observation Status ordered. EDMS 11:50 ECHOCARD,DOPPLER/COLOR FLOW ordered. EDMS 11:50 2 GRAM SODIUM DIET ordered. EDMS 11:51 LACTIC ACID LEVEL, LACTATE Ordered. EDMS 14:22 T-Sheet-- Draft Copy was scanned into Pitz[employer] and attached to record. gb 14:44 Piperacillin-Tazobactam 3.375 grams IVPB once over 30 mins; dilute in 50mL of NS or D5W rs3 ordered. 14:44 Acetaminophen Tablet 650 mg PO once ordered. rs3 14:44 carvedilol 25 mg PO once ordered. rs3 14:44 Ramipril 5 mg PO once ordered. rs3 14:45 hydrALAZINE 10 mg IV at bolus once; PRN for systolic Blood pressure >160 ordered. rs3 14:55 Radiology Report was scanned into Pitzi and attached to record. gb 16:08 vancomycin 1 grams IVPB once over 60 mins; dilute in 250mL of NS or D5W ordered. rs3 Administered Medications: 03:05 Drug: oxyCODONE-acetaminophen 1 tabs [oxycodone-acetaminophen 5 mg-325 mg tablet (1 mlc tabs)] Route: PO; 08:09 Drug: Acetaminophen 650 mg [acetaminophen 325 mg tablet (2 tabs)] Route: PO; mcp 13:14 Follow up: Temp 100.2 rs3 14:45 Drug: carvedilol 25 mg [carvedilol 6.25 mg tablet (4 tabs)] Route: PO; rs3 14:45 Drug: Ramipril 5 mg [ramipril 5 mg capsule (1 caps)] Route: PO; rs3 14:45 Drug: hydrALAZINE 10 mg [hydralazine 20 mg/mL injection solution] Route: IV; Rate: rs3 bolus; Site: left antecubital; 16:09 Follow up: IV Status: Completed infusion rs3 14:46 Drug: Piperacillin-Tazobactam 3.375 grams [piperacillin-tazobactam 3.375 gram rs3 intravenous solution] Route: IVPB; Infused Over: 30 mins; Site: left antecubital; 16:09 Follow up: IV Status: Completed infusion rs3 14:46 Drug: Acetaminophen 650 mg [acetaminophen 325 mg tablet (2 tabs)] Route: PO; rs3 16:09 Follow up: Temp 100.2 Oral rs3 16:08 Drug: vancomycin 1 grams [vancomycin 1,000 mg intravenous injection] Route: IVPB; rs3 Infused Over: 60 mins; Site: left antecubital; Signatures: Dispatcher [employer] EDAzucena Snell MD MD sdMarquita Alves, Chopper Operator Unit deg Catina Levine, Reg Reg Ketty Du RN RN rs3 Rajan Welsh DO DO cs11 Helen Zapata RN RN mlc Arel, Lisa lja Gosselin, Lisa, RN RN lmg Peters, Mary RN [facility] The chart was reviewed and I authenticate all verbal orders and agree with the evaluation and treatment provided.Corrections: (The following items were deleted from the chart) 07:22 07:19 THYROID PROFILE+LAB ordered. EDMS EDMS Attachments: 02:05 [facility] Payment Agreement dana 14:22 T-Sheet-- Draft Copy gb MTDD
[2016-05-02 16:41] VITALS: BP 123/58
[2016-05-02] MEDS ORDERED: FUROSEMIDE 40 MG TAB PO SCH (17:00)
[2016-05-02] MEDS: rOPINIRole 1MG TAB PO SCH ×2 (17:30→22:18)
[2016-05-02] MEDS: ASPIRIN 81 MG ENTERIC TAB PO SCH (17:58)
[2016-05-02] MEDS: ESCITALOPRAM OXALATE 10 MG TAB (LEXAPRO) PO SCH (17:58)
[2016-05-02] MEDS: MULTIVITAMINS/MINERALS THERAP 1 TAB PO SCH (17:59)
[2016-05-02] MEDS: NS 1,000 ML IV SCH (17:59)
[2016-05-02] MEDS: PANTOPRAZOLE 40MG TAB (PROTONIX) PO SCH (17:59)
[2016-05-02] MEDS: PERCOCET 5MG/325MG TAB PO SCH ×2 (17:59→20:18)
--- NOTE | 2016-05-02 18:51 | HPEPDOC ---
Medical History and Physical Date of Admission May 02, 2016 at 11:43 History and Physical PRIMARY CARE PROVIDER: ATTENDING: Lillie Bunn MD CHIEF COMPLAINT: Generalized weakness HISTORY OF PRESENT ILLNESS: This is a 71-year-old female past mental history of Parkinson's, spinal stenosis , recurrent UTIs, history of left humerus fracture, hypertension, and recurrent cellulitis of the lower 70s who presents complaining of generalized weakness having fallen onto the floor, as she missed the chair. Patient states that her helped her down to the floor, she did not have any head trauma nor did she have loss of consciousness. The patient states she's also been short of breath over the past 3 days however no cough, recent travels, dyspnea on exertion. No chest pain/palpitations. States she's feeling better at this time. In the ED patient was found to have cellulitis of lower extremity, with notable leukocytosis as well as hypoxia and was started on broad-spectrum antibiotics for sepsis. PAST MEDICAL HISTORY: As per HPI PAST SURGICAL HISTORY: Left eye surgery, tonsillectomy FAMILY HISTORY: F- TIA M- DM, cirrhosis SOCIAL HISTORY: Denies tobacco, alcohol, illicit drugs. Used to be a teacher. Lives with . ALLERGIES: See below REVIEW OF SYSTEMS: HEENT: Denies sore throat/headache CARDIOVASCULAR: Denies chest pain/palpitations RESPIRATORY: No shortness of breath/cough GASTROINTESTINAL: denies nausea/vomiting GENITOURINARY: Denies dysuria/urinary urgency. MUSCULOSKELETAL: Denies myalgias/arthralgias NEUROLOGICAL: Denies any focal weakness Rest of ROS negative. HOME MEDICATIONS: Please see below. PHYSICAL EXAMINATION: VITAL SIGNS: (see below) General: No acute distress, laying comfortably in bed. HEENT: Moist mucous membranes. Neck: No JVD or lymphadenopathy Cardiac: RRR, No murmurs Pulm: Diminished breath sounds at the bases b/l. No wheezing,no rhonchi Abd: NT/ND + BS. Ext: LLE with erythema and warmth. Distal pulses intact. Trace to 1+ Pitting edema BLE. LABORATORY DATA: See below. IMAGING: LE u/s 05/02/16 IMPRESSION: No evidence of DVT in left lower extremity.. Left tibial x ray 05/02/16 Impression: No acute fracture dislocation in the left tibial and fibular shaft. CXR 05/02/16 Impression: Mild cardiomegaly without change. Bibasilar atelectasis. Prominence of the interstitium contributed to by portable technique and large body habitus. CTA Chest 05/02/16 Impression: Limited study due to large body habitus and extensive streak artifact especially within the superior vena cava. The pulmonary arteries are opacified through the lobar artery levels bilaterally without visualized filling defect . The more peripheral pulmonary arteries cannot be adequately assessed due to limitations described above. May consider follow-up study. ASSESSMENT/PLAN: Sepsis 2/2 LLE cellulitis - patient with leukocytosis and hypoxia on presentation. Has been started on broad-spectrum antibiotics pending cultures. On vancomycin and Zosyn. Lactic acid 1.3. History of recurrent UTIs however UA negative. CTA with no PE. Chest x-ray with no infiltrates. We'll trend CRP. Has been hypertensive on presentation so we'll be gentle with IV hydration. CK D stage III- creatinine stable for nephrotoxins. Hypertension- continue home meds Chronic lower back pain- continue home meds Anxiety- continue home meds DVT prophylaxis- heparin subcutaneous Vital Signs Vital Signs Date Time Temp Pulse Resp B/P Pulse Ox O2 Delivery O2 Flow Rate FiO2 05/02/16 10:32 16 Nasal Cannula 4.0 05/02/16 16:41 100.2 80 123/58 93 Laboratory Data Labs 24H Laboratory Tests 2 05/02/16 01:55: Anion Gap 10, White Blood Count 18.0H, Red Blood Count 4.93, Hemoglobin 13.0, Hematocrit 41.2, Mean Corpuscular Volume 83.6, Mean Corpuscular Hemoglobin 26.5L , Mean Corpuscular Hemoglobin Concent 31.7L, Red Cell Distribution Width 15.6H, Platelet Count 147L, Neutrophils (%) (Auto) 92.1H, Lymphocytes (%) (Auto) 2.2L, Monocytes (%) (Auto) 4.0, Eosinophils (%) (Auto) 0.3, Basophils (%) (Auto) 0.8, Neutrophils # (Auto) 16.6H, Lymphocytes # (Auto) 0.5L, Monocytes # (Auto) 0.7, Eosinophils # (Auto) 0.0, Basophils # (Auto) 0.2, Blood Urea Nitrogen 21H, Creatinine 1.24H, Sodium Level 143, Potassium Level 5.0, Chloride Level 104, Carbon Dioxide Level 29, Calcium Level 9.0, Glomerular Filtration Rate 45.7, Large Unclassified Cells # 0.1, Large Unclassified Cells % 0.6 05/02/16 03:21: Urine Amorphous Sediment , Urine Appearance CLEAR, Urine Color YELLOW, Urine pH 7.0, Urine Specific [place] 1.016, Urine Protein NEGATIVE, Urine Glucose (UA) NEGATIVE, Urine Ketones TRACEH, Urine Urobilinogen 0.2, Urine Bilirubin NEGATIVE , Urine Leukocyte Esterase NEGATIVE, Urine Bacteria (Auto) NEGATIVE, Urine Blood NEGATIVE, Urine Calcium Carbonate Cryst(Auto) , Urine Calcium Oxalate Cryst (Auto) , Urine Calcium Phosphate [place] (Auto) , Urine Cellular Casts , Urine Cystine Crystals , Urine Granular Casts (Auto) , Urine Hyaline Casts (Auto ) 0, Urine Leucine Crystals , Urine Mucus (Auto) SMALL, Urine Nitrite NEGATIVE, Urine Oval Fat Bodies (Auto) , Urine RBC (Auto) 1, Urine Renal Epithelial Cells , Urine Sperm (Auto) , Urine Squamous Epithelial Cells 0, Urine Transitional Epithelial Cells , Urine Trichomonas (Auto) , Urine Triple Phosphate Cryst (Auto ) , Urine Tyrosine Crystals , Urine Uric Acid Crystals (Auto) , Urine WBC (Auto ) 0, Urine Waxy Casts (Auto) , Urine Yeast-Like Cells (Auto) 05/02/16 07:53: Aspartate Amino Transf (AST/SGOT) 18, Alanine Aminotransferase (ALT/SGPT) 18, Alkaline Phosphatase 100, Total Bilirubin 1.0, Direct Bilirubin 0.3H, Albumin 4.1, Albumin/Globulin Ratio 1.24, Free Thyroxine Index 3.3, Lactic Acid Level 1.3, Lipase 86, Thyroid Stimulating Hormone (TSH) 2.200, Thyroxine (T4) 10.6, Total Protein 7.4, Triiodothyronine (T3) Uptake 31 05/02/16 14:38: Lactic Acid Level 1.1 CBC/BMP Laboratory Tests 05/02/16 01:55 Calcium Level 9.0, Red Blood Count 4.93, Mean Corpuscular Volume 83.6, Mean Corpuscular Hemoglobin 26.5 L, Mean Corpuscular Hemoglobin Concent 31.7 L, Red Cell Distribution Width 15.6 H, Neutrophils (%) (Auto) 92.1 H, Lymphocytes (%) ( Auto) 2.2 L, Monocytes (%) (Auto) 4.0, Eosinophils (%) (Auto) 0.3, Basophils (% ) (Auto) 0.8, Neutrophils # (Auto) 16.6 H, Lymphocytes # (Auto) 0.5 L, Monocytes # (Auto) 0.7, Eosinophils # (Auto) 0.0, Basophils # (Auto) 0.2 Microbiology Microbiology 05/02/16 Blood Culture, Received Pending 05/02/16 Blood Culture, Received Pending 05/02/16 Influenza Virus Type A Antigen - Final, Complete 05/02/16 Influenza Virus Type B Antigen - Final, Complete 05/02/16 Urine Culture, Received Pending Home Medications Scheduled Aspirin (Aspirin 81) 81 Mg Tab 81 MG PO DAILY Carvedilol (Carvedilol) 25 Mg Tab 25 MG PO BID Escitalopram Oxalate (Escitalopram Oxalate) 10 Mg Tab 10 MG PO DAILY Furosemide (Lasix) 40 Mg Tab 40 MG PO BID Multivitamins *[facility] STOCKED* (Thera M Plus *[facility] STOCKED*) 1 Tab Tab 1 TAB PO DAILY Oxycodone/Acetaminophen (Percocet 5-325 mg) 1 Tab Tab 1 TAB PO TID Pantoprazole Sodium Sesquihydr (Protonix) 40 Mg Tab 40 MG PO DAILY Potassium Chloride (Klor-Con M20) 20 Meq Tabcr 20 MEQ PO DAILY Pregabalin (Lyrica) 75 Mg Cap 75 MG PO BID Ramipril (Altace) 5 Mg Cap 5 MG PO DAILY Ropinirole Hydrochloride (Ropinirole HCl) 1 Mg Tab 1 MG PO TID Scheduled PRN Docusate Sod/Senna (Senna S 8.6-50 mg) 1 Tab Tab 1 TAB PO DAILY PRN PRN CONSTIPATION Nystatin (Nystatin Powder) 100,000 Unit/Gm Pow 1 TOP BID PRN PRN RASH APPLIES UNDER ABDOMEN FOLDS Polyethylene Glycol (Miralax) 1 Pow Pow 17 GM PO DAILY PRN PRN CONSTIPATION Allergies Coded Allergies: Sulfa Antibiotics (Verified Allergy, Unknown, 01/17/14) LILLIE BUNN MD May 02, 2016 18:51
[2016-05-02] MEDS: FLUCONAZOLE 200 MG in APPROPRIATE DILUENT 1 EA IV SCH (18:56)
[2016-05-02] MEDS: CARVedilol 12.5 MG TAB PO SCH (20:17)
[2016-05-02] MEDS: PREGABALIN 75 MG CAP(LYRICA) PO SCH (20:18)
[2016-05-02 20:20] VITALS: BP 131/61
[2016-05-02 23:50] VITALS: BP 113/58
[2016-05-03] MEDS: PIPERACILLIN/TAZOBACTAM SOD 3.375 GM in D5W MINI-BAG PLUS 50 ML IV SCH ×4 (03:12→20:53)
[2016-05-03 05:00] VITALS: BP 104/52
[2016-05-03 05:02] LABS: MEAN CORPUSCULAR HEMOGLOBIN 26.8 pg (27.0-33.0); MEAN CORPUSCULAR HGB CONC 32.6 g/dl (32.0-36.5); RED CELL DISTRIBUTION WIDTH 15.1 % (11.5-14.5); WHITE BLOOD COUNT 11.4 K/mm3 (4.0-10.0)
[2016-05-03 05:24] LABS: CALCIUM LEVEL 8.2 MG/DL (8.8-10.2); CREATININE FOR GFR 1.55 MG/DL (0.55-1.02); GLOMERULAR FILTRATION RATE 35.3 (>45); POTASSIUM SERUM 3.9 MEQ/L (3.5-5.1)
[2016-05-03] MEDS: NS 1,000 ML IV SCH ×3 (07:25→08:21)
[2016-05-03] MEDS: NYSTATIN 100,000 UNITS/GM TOPICAL PWD 15 GM TOP PRN (07:26)
[2016-05-03 08:00] VITALS: BP 109/62
[2016-05-03] MEDS: ASPIRIN 81 MG ENTERIC TAB PO SCH (08:21)
[2016-05-03] MEDS: MULTIVITAMINS/MINERALS THERAP 1 TAB PO SCH (08:21)
[2016-05-03] MEDS: PREGABALIN 75 MG CAP(LYRICA) PO SCH ×2 (08:21→20:52)
[2016-05-03] MEDS: PANTOPRAZOLE 40MG TAB (PROTONIX) PO SCH (08:21)
[2016-05-03] MEDS: PERCOCET 5MG/325MG TAB PO SCH ×3 (08:21→20:52)
[2016-05-03] MEDS: ESCITALOPRAM OXALATE 10 MG TAB (LEXAPRO) PO SCH (08:21)
[2016-05-03] MEDS: rOPINIRole 1MG TAB PO SCH ×3 (08:22→20:52)
[2016-05-03] MEDS: CARVedilol 12.5 MG TAB PO SCH ×2 (08:24→21:00)
[2016-05-03] MEDS ORDERED: RAMIPRIL 5 MG CAP PO SCH (09:00)
[2016-05-03] MEDS: VANCOMYCIN HCL 1,000 MG, VIAL MATE ADAPTER 1 EACH in D5W 250 ML IV SCH (09:15)
[2016-05-03] MEDS: HEPARIN SOD (PORCINE) 5000 UNITS/ML VIAL SQ SCH ×2 (14:26→20:52)
--- NOTE | 2016-05-03 14:39 | IPNPDOC ---
Text Note Date of Service The patient was seen on 05/03/16 at 14:37. NOTE Subjective: Patient states she feels much improved. Denies any chest pain/ shortness of breath/palpitations. Objective: Vitals: (see below) General: No acute distress, laying comfortably in bed. HEENT: Moist mucous membranes. Neck: No JVD or lymphadenopathy Cardiac: RRR, No murmurs Pulm: Diminished breath sounds at the bases b/l. No wheezing,no rhonchi Abd: NT/ND + BS. Ext: LLE with erythema and warmth, slightly improved. Distal pulses intact. Trace to 1+ Pitting edema BLE. Labs (see below) Images: LE u/s 05/02/16 IMPRESSION: No evidence of DVT in left lower extremity.. Left tibial x ray 05/02/16 Impression: No acute fracture dislocation in the left tibial and fibular shaft. CXR 05/02/16 Impression: Mild cardiomegaly without change. Bibasilar atelectasis. Prominence of the interstitium contributed to by portable technique and large body habitus. CTA Chest 05/02/16 Impression: Limited study due to large body habitus and extensive streak artifact especially within the superior vena cava. The pulmonary arteries are opacified through the lobar artery levels bilaterally without visualized filling defect . The more peripheral pulmonary arteries cannot be adequately assessed due to limitations described above. May consider follow-up study. Assessment/Plan Sepsis 2/2 LLE cellulitis - patient with leukocytosis and hypoxia on presentation. Has been started on broad-spectrum antibiotics pending cultures. On vancomycin and Zosyn. Lactic acid 1.3. History of recurrent UTIs however UA negative. CTA with no PE. Chest x-ray with no infiltrates. We'll trend CRP. Cont IVF. CK D stage III- creatinine stable for nephrotoxins. Hypertension- continue home meds Chronic lower back pain- continue home meds Anxiety- continue home meds DVT prophylaxis- heparin subcutaneous VS,Fishbone, I+O VS, Fishbone, I+O Laboratory Tests 05/03/16 04:44 Calcium Level 8.2 L Vital Signs Date Time Temp Pulse Resp B/P Pulse Ox O2 Delivery O2 Flow Rate FiO2 05/03/16 08:56 17 Nasal Cannula 2.0 05/03/16 08:24 65 109/62 05/03/16 08:00 98.1 96 I&O- Last 24 Hours up to 6 AM 05/03/16 06:00 Intake Total 650 ml Output Total 185 ml Balance 465 ml LILLIE GOODMAN MD May 03, 2016 14:39
[2016-05-03 16:00] VITALS: BP 111/64
[2016-05-03] MEDS: FLUCONAZOLE 200 MG in APPROPRIATE DILUENT 1 EA IV SCH (17:10)
[2016-05-03 20:00] VITALS: BP 101/52
[2016-05-04] VITALS: BP 106/56
[2016-05-04] MEDS: NS 1,000 ML IV SCH ×2 (00:40→17:58)
[2016-05-04] MEDS: PIPERACILLIN/TAZOBACTAM SOD 3.375 GM in D5W MINI-BAG PLUS 50 ML IV SCH ×4 (02:53→22:43)
[2016-05-04 04:00] VITALS: BP 115/61
[2016-05-04] MEDS: VANCOMYCIN HCL 1,000 MG, VIAL MATE ADAPTER 1 EACH in D5W 250 ML IV SCH ×2 (04:01→21:12)
[2016-05-04 05:22] LABS: MEAN CORPUSCULAR HGB CONC 32.9 g/dl (32.0-36.5); MEAN CORPUSCULAR VOLUME 82.2 fl (80.0-96.0); RED CELL DISTRIBUTION WIDTH 16.1 % (11.5-14.5); WHITE BLOOD COUNT 6.9 K/mm3 (4.0-10.0)
[2016-05-04] MEDS: HEPARIN SOD (PORCINE) 5000 UNITS/ML VIAL SQ SCH ×3 (05:37→21:16)
[2016-05-04 05:40] LABS: CALCIUM LEVEL 7.9 MG/DL (8.8-10.2); CREATININE FOR GFR 1.36 MG/DL (0.55-1.02); POTASSIUM SERUM 3.6 MEQ/L (3.5-5.1)
[2016-05-04 06:03] LABS: EOSINOPHILS 7 % (0-5)
[2016-05-04 06:05] LABS: ANISOCYTOSIS 1+
[2016-05-04 08:00] VITALS: BP 131/73
[2016-05-04] MEDS: rOPINIRole 1MG TAB PO SCH ×3 (09:00→21:15)
[2016-05-04] MEDS: ESCITALOPRAM OXALATE 10 MG TAB (LEXAPRO) PO SCH (09:00)
[2016-05-04] MEDS: MULTIVITAMINS/MINERALS THERAP 1 TAB PO SCH (09:00)
[2016-05-04] MEDS ORDERED: PREVNAR 13 VACCINE SYRINGE (CPT CODE:90670) IM ONE (09:00)
[2016-05-04] MEDS: PANTOPRAZOLE 40MG TAB (PROTONIX) PO SCH (09:00)
[2016-05-04] MEDS: CARVedilol 12.5 MG TAB PO SCH ×2 (09:00→21:15)
[2016-05-04] MEDS: PREGABALIN 75 MG CAP(LYRICA) PO SCH ×2 (09:00→21:15)
[2016-05-04] MEDS: ASPIRIN 81 MG ENTERIC TAB PO SCH (09:00)
[2016-05-04] MEDS: PERCOCET 5MG/325MG TAB PO SCH ×3 (09:01→21:16)
--- NOTE | 2016-05-04 11:26 | IPNPDOC ---
Text Note Date of Service The patient was seen on 05/04/16 at 11:25. NOTE Subjective: Patient states she feels much improved. Slept well last night. Objective: Vitals: (see below) General: No acute distress, laying comfortably in bed. HEENT: Moist mucous membranes. Neck: No JVD or lymphadenopathy Cardiac: RRR, No murmurs Pulm: Diminished breath sounds at the bases b/l. No wheezing,no rhonchi Abd: NT/ND + BS. Ext: LLE with erythema and warmth, slightly improved. Distal pulses intact. Trace to 1+ Pitting edema BLE. Labs (see below) Images: LE u/s 05/02/16 IMPRESSION: No evidence of DVT in left lower extremity.. Left tibial x ray 05/02/16 Impression: No acute fracture dislocation in the left tibial and fibular shaft. CXR 05/02/16 Impression: Mild cardiomegaly without change. Bibasilar atelectasis. Prominence of the interstitium contributed to by portable technique and large body habitus. CTA Chest 05/02/16 Impression: Limited study due to large body habitus and extensive streak artifact especially within the superior vena cava. The pulmonary arteries are opacified through the lobar artery levels bilaterally without visualized filling defect . The more peripheral pulmonary arteries cannot be adequately assessed due to limitations described above. May consider follow-up study. Assessment/Plan Sepsis 2/2 LLE cellulitis - patient with leukocytosis and hypoxia on presentation. Has been started on broad-spectrum antibiotics pending cultures. On vancomycin and Zosyn. Lactic acid 1.3. History of recurrent UTIs however UA negative. CTA with no PE. Chest x-ray with no infiltrates. We'll trend CRP. Cont IVF. CKD stage III- creatinine stable for nephrotoxins. Hypertension- continue home meds Chronic lower back pain- continue home meds Anxiety- continue home meds DVT prophylaxis- heparin subcutaneous VS,Fishbone, I+O VS, Fishbone, I+O Laboratory Tests 05/04/16 05:10 Calcium Level 7.9 L Vital Signs Date Time Temp Pulse Resp B/P Pulse Ox O2 Delivery O2 Flow Rate FiO2 05/04/16 09:31 17 Room Air 05/04/16 09:00 74 131/73 05/04/16 08:00 97.0 95 05/03/16 17:44 2.0 I&O- Last 24 Hours up to 6 AM 05/04/16 06:00 Intake Total 2060 ml Output Total 700 ml Balance 1360 ml LILLIE GOODMAN MD May 04, 2016 11:26
[2016-05-04 12:00] VITALS: BP 100/58
--- NOTE | 2016-05-04 14:01 | ECHO ---
DATE OF PROCEDURE: 05/02/2016 REFERRING PHYSICIAN: Dr. Tito Bunn. PATIENT LOCATION: Room 3215 REASON FOR THE ECHOCARDIOGRAM: Shortness of breath. 2D MEASUREMENT: IVS - 1.2 cm LV - 5.0 cm LVPW - 1.2 cm LA - 3.9 cm Aorta - 2.8 cm IVC - 2.3 cm DOPPLER MEASUREMENTS: Peak velocity across the aortic valve - 1.5 m/s Peak velocity across the LVOT - 1.0 m/s Mitral E - 0.89, Mitral A - 0.81 with a ratio of 1.1 Maximum tricuspid valve velocity 2.7 m/s 2D COMMENTS: 1. Technically limited study due to poor acoustic window. 2. The left ventricular size is normal with a normal global left ventricular systolic function estimated at 65 to 70%. Borderline increased left ventricular wall thickness. 3. Normal left atrium. Normal right atrium and right ventricle. 4. The atrial septum appeared to be normal without evidence of defect or shunt. 5. Normal aortic root. 6. No pericardial effusion seen. 7. Mildly calcified aortic valve with normal leaflet excursion. Mildly calcified mitral annulus of normal anterior mitral valve leaflet motion. Normal tricuspid valve. The pulmonic valve and proximal pulmonary artery branches were not well visualized. 8. The inferior vena cava was mildly enlarged, central venous pressure might be elevated. DOPPLER: Only mild tricuspid regurgitation detected. The calculated pulmonary artery systolic pressure varies between 30 to 40 mmHg. Abnormal relaxation pattern was noted across the mitral valve annulus consistent with a pseudo normal pattern, left ventricular end-diastolic pressure might be elevated. IMPRESSION: 1. Technically limited study due to poor acoustic window. 2. Normal global left ventricular systolic function. There may be features of left ventricular diastolic dysfunction. 3. Aortic valve sclerosis without stenosis or aortic regurgitation. 4. Isolated mitral annulus calcification without any significant mitral regurgitation. 5. Mild tricuspid regurgitation with mild pulmonary hypertension. MTDD
[2016-05-04 16:40] VITALS: BP 140/77
--- NOTE | 2016-05-04 17:17 | EDDOCDS ---
Physician Documentation [facility] Name: Mirella Fournier Age: 71 yrs Sex: Female : 1945 Arrival Date: 05/02/2016 Time: 01:32 Bed 9 Private MD: Alo Dey B Disposition: 05/02/16 09:42 Hospitalization ordered by Lashay Carcamo for Inpatient Admission. Preliminary diagnosis is Fever of other and unknown origin. - Bed requested for PCU. - Status is Inpatient Admission. rs3 - Condition is Stable. - Problem is new. - Symptoms are unchanged. Historical: - Allergies: SULFA (SULFONAMIDES); - Home Meds: 1. Altace 5 mg Oral cap 1 cap once daily 2. aspirin 81 mg Oral chew 1 tab once daily 3. Ativan 0.5 mg Oral tab 1 tab 3 times per day as needed 4. carvedilol 25 mg oral tab 2 times per day 5. furosemide 40 mg oral tab 1 tab 2 times per day 6. Lexapro 10 mg Oral tab 1 tab once daily 7. Lyrica 75 mg Oral 1 cap 2 times per day 8. Miralax 17 gram/dose Oral powd once daily 9. multivitamin Oral cap 1 tab daily 10. Percocet 5-325 mg Oral tab 1 tab every 8 hours 11. potassium chloride 20 mEq Oral TbER 1 tab once daily 12. Protonix 40 mg oral TbEC 1 tab once daily 13. ropinirole 1 mg oral tab 3 times per day 14. Senna Plus 8.6-50 mg oral tab 1 tabs once daily - PMHx: Hypertension; intevertebral disc displacement; Spinal Stenosis; Parkinson's Disease; spondylosis; - PSHx: eye surgery; Tonsillectomy; - Social history: Smoking status: Patient states was never smoker of tobacco. No barriers to communication noted, The patient speaks fluent Italian. - Family history: Not pertinent, No immediate family members are acutely ill. - : The pt / caregiver states he / she is not on anticoagulants. Home medication list is obtained from the patient, [employer] import data. - Exposure Risk Screening:: None identified. Vital Signs: 05/02 01:43 BP 177 / 81; Pulse 93; Resp 18; Temp 98.7(O); Pulse Ox 88% on R/A; Weight 113.4 kg / rn1 250 lbs (R); Height 5 ft. 3 in. (160.02 cm); Pain 6/10; 01:50 Pulse 94 MON; Pulse Ox 97% on 2 lpm NC; js15 01:58 BP 179 / 73 (auto/); mlc 01:59 Pulse 88 MON; Pulse Ox 96% ; mlc 02:13 BP 170 / 64 (auto/); mlc 02:14 Pulse 90 MON; Pulse Ox 94% ; mlc 02:28 BP 158 / 71 (auto/); mlc 02:29 Pulse 86 MON; Pulse Ox 94% ; mlc 02:43 BP 150 / 57 (auto/); mlc 02:44 Pulse 100 MON; Pulse Ox 95% ; mlc 02:58 BP 139 / 65 (auto/); mlc 02:59 Pulse 98 MON; Pulse Ox 94% ; mlc 03:13 BP 152 / 68 (auto/); mlc 03:14 Pulse 102 MON; Pulse Ox 92% ; mlc 03:28 BP 129 / 60 (auto/); mlc 03:29 Pulse 96 MON; Pulse Ox 92% ; mlc 03:43 BP 116 / 55 (auto/); mlc 03:44 Pulse 82 MON; Pulse Ox 92% ; mlc 03:58 BP 115 / 55 (auto/); mlc 04:13 BP 100 / 52 (auto/); mlc 04:28 BP 111 / 55 (auto/); mlc 04:31 Pulse 78 MON; Pulse Ox 93% ; mlc 04:43 BP 126 / 60 (auto/); mlc 04:44 Pulse 82 MON; Pulse Ox 94% ; mlc 08:09 BP 147 / 95; Pulse 76; Resp 32; Temp 101.2(O); Pulse Ox 85% on R/A; mcp 08:10 Pulse Ox 95% on 4 lpm NC; mcp 11:37 BP 140 / 63 (auto/); rs3 11:37 Pulse 90 MON; rs3 12:07 BP 145 / 65 (auto/); rs3 12:07 Pulse 90 MON; rs3 12:37 BP 158 / 71 (auto/); rs3 12:38 Pulse 88 MON; Pulse Ox 95% ; rs3 13:07 BP 166 / 73 (auto/); rs3 13:08 Pulse 86 MON; Resp 20; Pulse Ox 96% ; rs3 13:14 Temp 100.2; rs3 13:37 BP 187 / 75 (auto/); rs3 13:38 Pulse 88 MON; Pulse Ox 95% ; rs3 14:07 BP 183 / 77 (auto/); rs3 14:08 BP 166 / 75; Pulse 86 MON; Resp 22; Temp 100.6; Pulse Ox 95% on NC; Pain 2/10; rs3 14:37 BP 186 / 74 (auto/); rs3 14:38 Pulse 86 MON; Temp 101.6(O); rs3 14:52 BP 178 / 73 (auto/); rs3 14:53 Pulse 88 MON; Pulse Ox 94% ; rs3 15:03 Pulse 88 MON; Pulse Ox 96% ; rs3 15:07 BP 167 / 71 (auto/); rs3 15:08 Pulse 88 MON; Pulse Ox 95% ; rs3 15:22 BP 135 / 60 (auto/); rs3 15:22 Pulse 86 MON; Pulse Ox 94% ; rs3 15:37 BP 119 / 56 (auto/); rs3 15:38 Pulse 84 MON; Pulse Ox 95% ; rs3 15:58 BP 113 / 58 (auto/); rs3 15:58 BP 113 / 58; Pulse 90 MON; Resp 24; Temp 100.2; Pulse Ox 96% ; rs3 16:09 Temp 100.2(O); rs3 01:43 Body Mass Index 44.29 (113.40 kg, 160.02 cm) rn1 MDM: 02:05 [facility] [place] was scanned into [employer] and attached to record. lja 02:05 Financial registration complete. lja 02:51 oxyCODONE-acetaminophen 5 mg-325 mg 1 tabs PO once ordered. cs11 02:52 CBC with Diff Ordered. EDMS 02:52 MED Profile Ordered. EDMS 02:52 Urinalysis: catheterize. thanks Ordered. EDMS 02:52 Urine Culture Ordered. EDMS 02:52 Tibia/Fibula Ordered. EDMS 02:53 Ultrasound LE Unilateral R/O DVT Ordered. EDMS 03:33 CBC with Diff Reviewed. cs11 03:33 MED Profile Reviewed. cs11 04:04 Urinalysis: catheterize. thanks Reviewed. cs11 07:17 -Blood Culture (Adults Only), peripheral from different site, or from device/port/PICC sd1 etc. if present ordered. 07:18 IV Saline Lock ordered. sd1 07:18 -Blood Culture Ordered. EDMS 07:18 Lactic Acid (Crouch tube on ice) Ordered. EDMS 07:18 -Influenza A&B Rapid Antigen - Nose Ordered. EDMS 07:18 Chest, 2 View (pa\E\lat) Ordered. EDMS 07:19 Liver Profile Ordered. EDMS 07:19 Lipase Ordered. EDMS 07:19 BED REQUEST+ADM ordered. EDMS 07:21 -Blood Culture (Adults Only), peripheral from different site, or from device/port/PICC deg etc. if present complete. 07:22 BLOOD CULTURES Ordered. EDMS 07:23 THYROID PROFILE Ordered. EDMS 07:28 Acetaminophen Tablet 650 mg PO once ordered. sd1 08:14 Ultrasound LE Unilateral R/O DVT Reviewed. sd1 08:42 Liver Profile Reviewed. sd1 08:42 Lactic Acid (Crouch tube on ice) Reviewed. sd1 08:42 -Influenza A&B Rapid Antigen - Nose Reviewed. sd1 08:42 Lipase Reviewed. sd1 08:42 THYROID PROFILE Reviewed. sd1 09:18 Chest, 2 View (pa\E\lat) Reviewed. sd1 09:20 CT Chest Angio R/O PE Ordered. EDMS 09:40 Tibia/Fibula Reviewed. sd1 09:47 PCR was scanned into [employer] and attached to record. gb 11:49 PHYSICAL THERAPY EVAL & TREAT ordered. EDMS 11:50 Admission / Observation Status ordered. EDMS 11:50 ECHOCARD,DOPPLER/COLOR FLOW ordered. EDMS 11:50 2 GRAM SODIUM DIET ordered. EDMS 11:51 LACTIC ACID LEVEL, LACTATE Ordered. EDMS 14:22 T-Sheet-- Draft Copy was scanned into [employer] and attached to record. gb 14:44 Piperacillin-Tazobactam 3.375 grams IVPB once over 30 mins; dilute in 50mL of NS or D5W rs3 ordered. 14:44 Acetaminophen Tablet 650 mg PO once ordered. rs3 14:44 carvedilol 25 mg PO once ordered. rs3 14:44 Ramipril 5 mg PO once ordered. rs3 14:45 hydrALAZINE 10 mg IV at bolus once; PRN for systolic Blood pressure >160 ordered. rs3 14:55 Radiology Report was scanned into [employer] and attached to record. gb 16:08 vancomycin 1 grams IVPB once over 60 mins; dilute in 250mL of NS or D5W ordered. rs3 Administered Medications: 03:05 Drug: oxyCODONE-acetaminophen 1 tabs [oxycodone-acetaminophen 5 mg-325 mg tablet (1 mlc tabs)] Route: PO; 08:09 Drug: Acetaminophen 650 mg [acetaminophen 325 mg tablet (2 tabs)] Route: PO; mcp 13:14 Follow up: Temp 100.2 rs3 14:45 Drug: carvedilol 25 mg [carvedilol 6.25 mg tablet (4 tabs)] Route: PO; rs3 14:45 Drug: Ramipril 5 mg [ramipril 5 mg capsule (1 caps)] Route: PO; rs3 14:45 Drug: hydrALAZINE 10 mg [hydralazine 20 mg/mL injection solution] Route: IV; Rate: rs3 bolus; Site: left antecubital; 16:09 Follow up: IV Status: Completed infusion rs3 14:46 Drug: Piperacillin-Tazobactam 3.375 grams [piperacillin-tazobactam 3.375 gram rs3 intravenous solution] Route: IVPB; Infused Over: 30 mins; Site: left antecubital; 16:09 Follow up: IV Status: Completed infusion rs3 14:46 Drug: Acetaminophen 650 mg [acetaminophen 325 mg tablet (2 tabs)] Route: PO; rs3 16:09 Follow up: Temp 100.2 Oral rs3 16:08 Drug: vancomycin 1 grams [vancomycin 1,000 mg intravenous injection] Route: IVPB; rs3 Infused Over: 60 mins; Site: left antecubital; Signatures: Dispatcher [employer] EDAzucena Snell MD MD sdMarquita Alves, [employer] Unit deg Catina Levine, Reg Reg Ketty Du RN RN rs3 Rajan Welsh DO DO cs11 Helen Zapata RN RN mlc Arel, Lisa lja Gosselin, Lisa, RN RN lmg Peters, Mary RN [facility] The chart was reviewed and I authenticate all verbal orders and agree with the evaluation and treatment provided.Corrections: (The following items were deleted from the chart) 07:22 07:19 THYROID PROFILE+LAB ordered. EDMS EDMS Attachments: 02:05 [facility] Payment Agreement dana 14:22 T-Sheet-- Draft Copy gb Chart Complete MTDD
--- NOTE | 2016-05-04 17:17 | EDDOCDS ---
Physician Documentation [facility] Name: Mirella Fournier Age: 71 yrs Sex: Female : 1945 Arrival Date: 05/02/2016 Time: 01:32 Bed 9 Private MD: Alo Dey B Disposition: 05/02/16 09:42 Hospitalization ordered by Lashay Carcamo for Inpatient Admission. Preliminary diagnosis is Fever of other and unknown origin. - Bed requested for PCU. - Status is Inpatient Admission. rs3 - Condition is Stable. - Problem is new. - Symptoms are unchanged. Historical: - Allergies: SULFA (SULFONAMIDES); - Home Meds: 1. Altace 5 mg Oral cap 1 cap once daily 2. aspirin 81 mg Oral chew 1 tab once daily 3. Ativan 0.5 mg Oral tab 1 tab 3 times per day as needed 4. carvedilol 25 mg oral tab 2 times per day 5. furosemide 40 mg oral tab 1 tab 2 times per day 6. Lexapro 10 mg Oral tab 1 tab once daily 7. Lyrica 75 mg Oral 1 cap 2 times per day 8. Miralax 17 gram/dose Oral powd once daily 9. multivitamin Oral cap 1 tab daily 10. Percocet 5-325 mg Oral tab 1 tab every 8 hours 11. potassium chloride 20 mEq Oral TbER 1 tab once daily 12. Protonix 40 mg oral TbEC 1 tab once daily 13. ropinirole 1 mg oral tab 3 times per day 14. Senna Plus 8.6-50 mg oral tab 1 tabs once daily - PMHx: Hypertension; intevertebral disc displacement; Spinal Stenosis; Parkinson's Disease; spondylosis; - PSHx: eye surgery; Tonsillectomy; - Social history: Smoking status: Patient states was never smoker of tobacco. No barriers to communication noted, The patient speaks fluent Kyrgyz. - Family history: Not pertinent, No immediate family members are acutely ill. - : The pt / caregiver states he / she is not on anticoagulants. Home medication list is obtained from the patient, [employer] import data. - Exposure Risk Screening:: None identified. Vital Signs: 05/02 01:43 BP 177 / 81; Pulse 93; Resp 18; Temp 98.7(O); Pulse Ox 88% on R/A; Weight 113.4 kg / rn1 250 lbs (R); Height 5 ft. 3 in. (160.02 cm); Pain 6/10; 01:50 Pulse 94 MON; Pulse Ox 97% on 2 lpm NC; js15 01:58 BP 179 / 73 (auto/); mlc 01:59 Pulse 88 MON; Pulse Ox 96% ; mlc 02:13 BP 170 / 64 (auto/); mlc 02:14 Pulse 90 MON; Pulse Ox 94% ; mlc 02:28 BP 158 / 71 (auto/); mlc 02:29 Pulse 86 MON; Pulse Ox 94% ; mlc 02:43 BP 150 / 57 (auto/); mlc 02:44 Pulse 100 MON; Pulse Ox 95% ; mlc 02:58 BP 139 / 65 (auto/); mlc 02:59 Pulse 98 MON; Pulse Ox 94% ; mlc 03:13 BP 152 / 68 (auto/); mlc 03:14 Pulse 102 MON; Pulse Ox 92% ; mlc 03:28 BP 129 / 60 (auto/); mlc 03:29 Pulse 96 MON; Pulse Ox 92% ; mlc 03:43 BP 116 / 55 (auto/); mlc 03:44 Pulse 82 MON; Pulse Ox 92% ; mlc 03:58 BP 115 / 55 (auto/); mlc 04:13 BP 100 / 52 (auto/); mlc 04:28 BP 111 / 55 (auto/); mlc 04:31 Pulse 78 MON; Pulse Ox 93% ; mlc 04:43 BP 126 / 60 (auto/); mlc 04:44 Pulse 82 MON; Pulse Ox 94% ; mlc 08:09 BP 147 / 95; Pulse 76; Resp 32; Temp 101.2(O); Pulse Ox 85% on R/A; mcp 08:10 Pulse Ox 95% on 4 lpm NC; mcp 11:37 BP 140 / 63 (auto/); rs3 11:37 Pulse 90 MON; rs3 12:07 BP 145 / 65 (auto/); rs3 12:07 Pulse 90 MON; rs3 12:37 BP 158 / 71 (auto/); rs3 12:38 Pulse 88 MON; Pulse Ox 95% ; rs3 13:07 BP 166 / 73 (auto/); rs3 13:08 Pulse 86 MON; Resp 20; Pulse Ox 96% ; rs3 13:14 Temp 100.2; rs3 13:37 BP 187 / 75 (auto/); rs3 13:38 Pulse 88 MON; Pulse Ox 95% ; rs3 14:07 BP 183 / 77 (auto/); rs3 14:08 BP 166 / 75; Pulse 86 MON; Resp 22; Temp 100.6; Pulse Ox 95% on NC; Pain 2/10; rs3 14:37 BP 186 / 74 (auto/); rs3 14:38 Pulse 86 MON; Temp 101.6(O); rs3 14:52 BP 178 / 73 (auto/); rs3 14:53 Pulse 88 MON; Pulse Ox 94% ; rs3 15:03 Pulse 88 MON; Pulse Ox 96% ; rs3 15:07 BP 167 / 71 (auto/); rs3 15:08 Pulse 88 MON; Pulse Ox 95% ; rs3 15:22 BP 135 / 60 (auto/); rs3 15:22 Pulse 86 MON; Pulse Ox 94% ; rs3 15:37 BP 119 / 56 (auto/); rs3 15:38 Pulse 84 MON; Pulse Ox 95% ; rs3 15:58 BP 113 / 58 (auto/); rs3 15:58 BP 113 / 58; Pulse 90 MON; Resp 24; Temp 100.2; Pulse Ox 96% ; rs3 16:09 Temp 100.2(O); rs3 01:43 Body Mass Index 44.29 (113.40 kg, 160.02 cm) rn1 MDM: 02:05 [facility] [place] was scanned into [employer] and attached to record. lja 02:05 Financial registration complete. lja 02:51 oxyCODONE-acetaminophen 5 mg-325 mg 1 tabs PO once ordered. cs11 02:52 CBC with Diff Ordered. EDMS 02:52 MED Profile Ordered. EDMS 02:52 Urinalysis: catheterize. thanks Ordered. EDMS 02:52 Urine Culture Ordered. EDMS 02:52 Tibia/Fibula Ordered. EDMS 02:53 Ultrasound LE Unilateral R/O DVT Ordered. EDMS 03:33 CBC with Diff Reviewed. cs11 03:33 MED Profile Reviewed. cs11 04:04 Urinalysis: catheterize. thanks Reviewed. cs11 07:17 -Blood Culture (Adults Only), peripheral from different site, or from device/port/PICC sd1 etc. if present ordered. 07:18 IV Saline Lock ordered. sd1 07:18 -Blood Culture Ordered. EDMS 07:18 Lactic Acid (Crouch tube on ice) Ordered. EDMS 07:18 -Influenza A&B Rapid Antigen - Nose Ordered. EDMS 07:18 Chest, 2 View (pa\E\lat) Ordered. EDMS 07:19 Liver Profile Ordered. EDMS 07:19 Lipase Ordered. EDMS 07:19 BED REQUEST+ADM ordered. EDMS 07:21 -Blood Culture (Adults Only), peripheral from different site, or from device/port/PICC deg etc. if present complete. 07:22 BLOOD CULTURES Ordered. EDMS 07:23 THYROID PROFILE Ordered. EDMS 07:28 Acetaminophen Tablet 650 mg PO once ordered. sd1 08:14 Ultrasound LE Unilateral R/O DVT Reviewed. sd1 08:42 Liver Profile Reviewed. sd1 08:42 Lactic Acid (Crouch tube on ice) Reviewed. sd1 08:42 -Influenza A&B Rapid Antigen - Nose Reviewed. sd1 08:42 Lipase Reviewed. sd1 08:42 THYROID PROFILE Reviewed. sd1 09:18 Chest, 2 View (pa\E\lat) Reviewed. sd1 09:20 CT Chest Angio R/O PE Ordered. EDMS 09:40 Tibia/Fibula Reviewed. sd1 09:47 PCR was scanned into [employer] and attached to record. gb 11:49 PHYSICAL THERAPY EVAL & TREAT ordered. EDMS 11:50 Admission / Observation Status ordered. EDMS 11:50 ECHOCARD,DOPPLER/COLOR FLOW ordered. EDMS 11:50 2 GRAM SODIUM DIET ordered. EDMS 11:51 LACTIC ACID LEVEL, LACTATE Ordered. EDMS 14:22 T-Sheet-- Draft Copy was scanned into [employer] and attached to record. gb 14:44 Piperacillin-Tazobactam 3.375 grams IVPB once over 30 mins; dilute in 50mL of NS or D5W rs3 ordered. 14:44 Acetaminophen Tablet 650 mg PO once ordered. rs3 14:44 carvedilol 25 mg PO once ordered. rs3 14:44 Ramipril 5 mg PO once ordered. rs3 14:45 hydrALAZINE 10 mg IV at bolus once; PRN for systolic Blood pressure >160 ordered. rs3 14:55 Radiology Report was scanned into [employer] and attached to record. gb 16:08 vancomycin 1 grams IVPB once over 60 mins; dilute in 250mL of NS or D5W ordered. rs3 Administered Medications: 03:05 Drug: oxyCODONE-acetaminophen 1 tabs [oxycodone-acetaminophen 5 mg-325 mg tablet (1 mlc tabs)] Route: PO; 08:09 Drug: Acetaminophen 650 mg [acetaminophen 325 mg tablet (2 tabs)] Route: PO; mcp 13:14 Follow up: Temp 100.2 rs3 14:45 Drug: carvedilol 25 mg [carvedilol 6.25 mg tablet (4 tabs)] Route: PO; rs3 14:45 Drug: Ramipril 5 mg [ramipril 5 mg capsule (1 caps)] Route: PO; rs3 14:45 Drug: hydrALAZINE 10 mg [hydralazine 20 mg/mL injection solution] Route: IV; Rate: rs3 bolus; Site: left antecubital; 16:09 Follow up: IV Status: Completed infusion rs3 14:46 Drug: Piperacillin-Tazobactam 3.375 grams [piperacillin-tazobactam 3.375 gram rs3 intravenous solution] Route: IVPB; Infused Over: 30 mins; Site: left antecubital; 16:09 Follow up: IV Status: Completed infusion rs3 14:46 Drug: Acetaminophen 650 mg [acetaminophen 325 mg tablet (2 tabs)] Route: PO; rs3 16:09 Follow up: Temp 100.2 Oral rs3 16:08 Drug: vancomycin 1 grams [vancomycin 1,000 mg intravenous injection] Route: IVPB; rs3 Infused Over: 60 mins; Site: left antecubital; Signatures: Dispatcher [employer] EDAzucena Snell MD MD sdMarquita Alves, Sports Instructor Unit deg Catina Levine, Reg Reg Ketty Du RN RN rs3 Rajan Welsh DO DO cs11 Helen Zapata RN RN mlc Arel, Lisa lja Gosselin, Lisa, RN RN lmg Peters, Mary RN [facility] The chart was reviewed and I authenticate all verbal orders and agree with the evaluation and treatment provided.Corrections: (The following items were deleted from the chart) 07:22 07:19 THYROID PROFILE+LAB ordered. EDMS EDMS Attachments: 02:05 [facility] Payment Agreement dana 14:22 T-Sheet-- Draft Copy gb Chart Complete MTDD
--- NOTE | 2016-05-04 17:17 | EDDOCDS ---
Nurse's Notes [facility] Name: Mirella Fournier Age: 71 yrs Sex: Female : 1945 Arrival Date: 05/02/2016 Time: 01:32 Bed 9 Private MD: Alo Dey B Diagnosis: Fever of other and unknown origin Presentation: 05/02 01:36 Presenting complaint: EMS states: pt was moving pt from bathroom back into her chair. mlc pt missed the chair and lowered her to the floor. states pt was weak on the left side. EMS found no symptoms. pt c/o weakness. Adult Sepsis Screening: The patient does not have new or worsening altered mentation. Patient's respiratory rate is less than 22. Systolic blood pressure is greater than 100. Patient has a qSOFA score of 0- Negative Sepsis Screen. Suicide/Homicide risk assessment- the patient denies having any suicidal and/or homicidal ideations and does not present with any other emotional, behavioral or mental health complaints. Status: Patient is not a service person or dependent. Transition of care: patient was not received from another setting of care. 01:36 Acuity: [facility] Level 3 [facility] 01:36 Method Of Arrival: Ambulance [facility] Triage Assessment: 01:45 General: Appears in no apparent distress, comfortable, Behavior is cooperative, mlc pleasant. Pain: Location: low back area, pelvis, right leg and left leg Pain currently is 6 out of 10 on a pain scale. The patient is triaged at the bedside. See Assessment in Nurses Notes section of ED record. Neurological: Level of Consciousness is awake, alert, obeys commands, Oriented to person, place, time. Neurological: Reports headache. Respiratory: Airway is patent Respiratory effort is even, unlabored, Respiratory pattern is regular. GI: Reports nausea. Derm: Skin is normal. Historical: - Allergies: SULFA (SULFONAMIDES); - Home Meds: 1. Altace 5 mg Oral cap 1 cap once daily 2. aspirin 81 mg Oral chew 1 tab once daily 3. Ativan 0.5 mg Oral tab 1 tab 3 times per day as needed 4. carvedilol 25 mg oral tab 2 times per day 5. furosemide 40 mg oral tab 1 tab 2 times per day 6. Lexapro 10 mg Oral tab 1 tab once daily 7. Lyrica 75 mg Oral 1 cap 2 times per day 8. Miralax 17 gram/dose Oral powd once daily 9. multivitamin Oral cap 1 tab daily 10. Percocet 5-325 mg Oral tab 1 tab every 8 hours 11. potassium chloride 20 mEq Oral TbER 1 tab once daily 12. Protonix 40 mg oral TbEC 1 tab once daily 13. ropinirole 1 mg oral tab 3 times per day 14. Senna Plus 8.6-50 mg oral tab 1 tabs once daily - PMHx: Hypertension; intevertebral disc displacement; Spinal Stenosis; Parkinson's Disease; spondylosis; - PSHx: eye surgery; Tonsillectomy; - Social history: Smoking status: Patient states was never smoker of tobacco. No barriers to communication noted, The patient speaks fluent [place]. - Family history: Not pertinent, No immediate family members are acutely ill. - : The pt / caregiver states he / she is not on anticoagulants. Home medication list is obtained from the patient, Edutor import data. - Exposure Risk Screening:: None identified. Screenin:46 Screening information is obtained from the patient, family members. Fall risk: At risk mlc due to gait disturbance, prior history of falls. Assistance ADL's: Requires assistance with meal preparation, this assistance is provided by family members, bathing, assistance is provided by family members, dressing, assistance is provided by family members, toileting, assistance is provided by housework, assistance is provided by family members. Abuse/DV Screen: The patient / caregiver reports he/she is: not in a situation that causes fear, pain or injury. Nutritional screening: No deficits noted. Advance Directives: Currently, there is no health care proxy. There is no active DNR order. There is no living will. There is no Power of Rack Worker. home support is adequate. Assessment: 01:51 General: Appears in no apparent distress, comfortable, Behavior is cooperative. Pain: mlc Pain currently is 6 out of 10 on a pain scale. Neurological: Level of Consciousness is awake, alert, Oriented to person, place, time, Inbound Sales Advisor are equal bilaterally Speech is normal, Facial symmetry appears normal, Pupils are PERRLA. Cardiovascular: Heart tones S1 S2 present. Respiratory: Airway is patent Respiratory effort is even, unlabored, Respiratory pattern is regular, Breath sounds are diminished bilaterally. GI: Abdomen is obese, Bowel sounds present X 4 quads. Abd is soft and non tender X 4 quads. Derm: Skin is normal. 02:35 Adult Sepsis Screening:. js15 03:26 Derm: Skin excoriated area under abdominal fold. mlc 03:49 Adult Sepsis Screening: The patient does not have new or worsening altered mentation. [facility] Patient's respiratory rate is less than 22. Systolic blood pressure is greater than 100. Patient has a qSOFA score of 0- Negative Sepsis Screen. 04:46 Reassessment: Patient appears in no apparent distress at this time. no changes since [facility] prior. pt resting comfortably in bed. resp easy/unlabored. . 07:15 General: Appears ill, Behavior is cooperative. Pain: Location: all over Pain currently mcp is 5 out of 10 on a pain scale. Neurological: Level of Consciousness is awake, alert, Oriented to person, place, time, Speech is normal. Cardiovascular: Rhythm is sinus rhythm No ectopy. Respiratory: Airway is patent Respiratory effort is even, labored. Derm: Skin is dry, Skin is pink, Skin temperature is warm. 08:15 General: Appears ill, Behavior is cooperative. Neurological: Level of Consciousness is mcp awake, alert, Oriented to person, place, time, Speech is normal. Respiratory: Airway is patent Respiratory effort is even, labored. Derm: Skin is pink, warm & dry. 09:10 General: Appears in no apparent distress, to be sleeping. Behavior is cooperative, jo3 quiet. General: Awaiting admission at this time . Neurological: No deficits noted. Cardiovascular: Rhythm is sinus rhythm No ectopy. Respiratory: Airway is patent Respiratory effort is even, unlabored. Derm: Skin is pink, warm & dry. 10:12 Reassessment: Patient appears in no apparent distress at this time. Taken to Ct for jo3 angio study at this time. Tolerated well. returned to room and positioned for comfort by this fiction and nonfiction prose writer and Karen Davis, SOLID WASTE COLLECTOR. Admission nurse now at bedside. Pt aware of plan of care . 11:30 General: Appears in no apparent distress, incontinent of urine. lower abdominal fold, rs3 inguinal area and perineal area has excoriated skin. skin care given. repositioned patient in bed. 12:30 General: Appears in no apparent distress, Behavior is cooperative, denies of distress. rs3 at bedside. waiting for admission room availability. Temp 100.2. cold wash cloth applied to forehead. 13:13 Reassessment: Patient appears in no apparent distress at this time. Patient denies pain rs3 at this time. Patient states feeling better. Patient states symptoms have improved. 14:30 General: Appears in no apparent distress, Behavior is cooperative, Temp rechecked. rs3 101.6. blood pressure systolic 183/74. attending provider made aware. ordered meds given. 15:30 General: Appears in no apparent distress, denies of pain/distress. refused lunch. rs3 ordered antibiotic infusing. . 16:15 Reassessment: Patient appears in no apparent distress at this time. Patient denies pain rs3 at this time. Patient states feeling better. Patient states symptoms have improved. General:. Social Work Consult: 06:37 Social Work Note: [facility] Transportation has been paged to discuss assisting PT with j[facility] transport home. Vital Signs: 01:43 BP 177 / 81; Pulse 93; Resp 18; Temp 98.7(O); Pulse Ox 88% on R/A; Weight 113.4 kg (R); rn1 Height 5 ft. 3 in. (160.02 cm); Pain 6/10; 01:50 Pulse 94 MON; Pulse Ox 97% on 2 lpm NC; js15 01:58 BP 179 / 73 (auto/); mlc 01:59 Pulse 88 MON; Pulse Ox 96% ; mlc 02:13 BP 170 / 64 (auto/); mlc 02:14 Pulse 90 MON; Pulse Ox 94% ; mlc 02:28 BP 158 / 71 (auto/); mlc 02:29 Pulse 86 MON; Pulse Ox 94% ; mlc 02:43 BP 150 / 57 (auto/); mlc 02:44 Pulse 100 MON; Pulse Ox 95% ; mlc 02:58 BP 139 / 65 (auto/); mlc 02:59 Pulse 98 MON; Pulse Ox 94% ; mlc 03:13 BP 152 / 68 (auto/); mlc 03:14 Pulse 102 MON; Pulse Ox 92% ; mlc 03:28 BP 129 / 60 (auto/); mlc 03:29 Pulse 96 MON; Pulse Ox 92% ; mlc 03:43 BP 116 / 55 (auto/); mlc 03:44 Pulse 82 MON; Pulse Ox 92% ; mlc 03:58 BP 115 / 55 (auto/); mlc 04:13 BP 100 / 52 (auto/); mlc 04:28 BP 111 / 55 (auto/); mlc 04:31 Pulse 78 MON; Pulse Ox 93% ; mlc 04:43 BP 126 / 60 (auto/); mlc 04:44 Pulse 82 MON; Pulse Ox 94% ; mlc 08:09 BP 147 / 95; Pulse 76; Resp 32; Temp 101.2(O); Pulse Ox 85% on R/A; mcp 08:10 Pulse Ox 95% on 4 lpm NC; mcp 11:37 BP 140 / 63 (auto/); rs3 11:37 Pulse 90 MON; rs3 12:07 BP 145 / 65 (auto/); rs3 12:07 Pulse 90 MON; rs3 12:37 BP 158 / 71 (auto/); rs3 12:38 Pulse 88 MON; Pulse Ox 95% ; rs3 13:07 BP 166 / 73 (auto/); rs3 13:08 Pulse 86 MON; Resp 20; Pulse Ox 96% ; rs3 13:14 Temp 100.2; rs3 13:37 BP 187 / 75 (auto/); rs3 13:38 Pulse 88 MON; Pulse Ox 95% ; rs3 14:07 BP 183 / 77 (auto/); rs3 14:08 BP 166 / 75; Pulse 86 MON; Resp 22; Temp 100.6; Pulse Ox 95% on NC; Pain 2/10; rs3 14:37 BP 186 / 74 (auto/); rs3 14:38 Pulse 86 MON; Temp 101.6(O); rs3 14:52 BP 178 / 73 (auto/); rs3 14:53 Pulse 88 MON; Pulse Ox 94% ; rs3 15:03 Pulse 88 MON; Pulse Ox 96% ; rs3 15:07 BP 167 / 71 (auto/); rs3 15:08 Pulse 88 MON; Pulse Ox 95% ; rs3 15:22 BP 135 / 60 (auto/); rs3 15:22 Pulse 86 MON; Pulse Ox 94% ; rs3 15:37 BP 119 / 56 (auto/); rs3 15:38 Pulse 84 MON; Pulse Ox 95% ; rs3 15:58 BP 113 / 58 (auto/); rs3 15:58 BP 113 / 58; Pulse 90 MON; Resp 24; Temp 100.2; Pulse Ox 96% ; rs3 16:09 Temp 100.2(O); rs3 01:43 Body Mass Index 44.29 (113.40 kg, 160.02 cm) rn1 Vitals: 01:45 Log In Time N/A - ambulance arrival. [facility] ED Course: 01:34 Patient visited by Orlin Robert PCA. kb5 01:34 Alo Dey is Private Physician. kb5 01:34 Patient moved to Waiting kb5 01:34 Patient moved to 9 kb5 01:41 Triage Initiated mlc 01:46 ekg monitor tech on. Pulse ox on. NIBP on. mlc 01:48 Patient visited by Helen Zapata RN. mlc 01:49 Rajan Welsh DO is Attending Physician. cs11 01:49 Patient visited by Rajan Welsh DO. cs11 01:56 Inserted saline lock: 18 gauge in right antecubital area The patient tolerated the js15 procedure well. 01:57 Patient visited by Helen Zapata RN. mlc 01:58 The patient / caregiver is instructed regarding the plan of care and ED course. [facility] 02:05 [facility] Payment Agreement was scanned into [employer] and attached to record. lja 02:11 Patient name changed from Mirella\S\\S\Fournier\S\ to Mirella\S\A\S\Fournier. EDMS 03:07 Patient moved to Ultrasound br3 03:17 Patient moved to 9 br3 03:26 Urine Culture Sent. mlc 03:26 Urinalysis: catheterize. thanks Sent. mlc 03:26 Straight cath inserted 16 Fr. Specimen obtained. returned clear yellow urine. Patient [facility] tolerated well. 03:27 Patient visited by Helen Zapata RN. mlc 04:48 Patient visited by Helen Zapata RN. mlc 04:52 Alo Dey is Referral Physician. cs11 05:29 Ultrasound LE Unilateral R/O DVT Returned. EDMS 07:16 Attending Physician role handed off by Rajan eWlsh DO sd1 07:16 Azcuena Robertson MD is Attending Physician. sd1 08:12 Patient visited by Adrienne Bourne RN. [facility] 08:12 Inserted saline lock: 20 gauge in left antecubital area and blood collected. The [facility] patient tolerated the procedure well. Labs drawn. (by ED staff). Sent per order to lab. Labs/Blood culture drawn. 08:16 Patient visited by Adrienne Bourne RN. [facility] 08:43 Chest, 2 View (pa\E\lat) Returned. EDMS 09:23 Tibia/Fibula Returned. EDMS 09:29 Patient visited by Myrtle Apodaca RN. jo3 09:42 Lashay Carcamo is Hospitalizing Provider. sd1 09:47 PCR was scanned into [employer] and attached to record. gb 10:13 Patient visited by Myrtle Apodaca RN. jo3 10:46 CT Chest Angio R/O PE Returned. EDMS 11:00 Ketty Harp,RICCARDO is Primary Nurse. rs3 12:47 No procedures done that require assistance. rs3 14:22 T-Sheet-- Draft Copy was scanned into [employer] and attached to record. gb 14:55 Radiology Report was scanned into [employer] and attached to record. gb Administered Medications: 03:05 Drug: oxyCODONE-acetaminophen 1 tabs [oxycodone-acetaminophen 5 mg-325 mg tablet (1 mlc tabs)] Route: PO; 08:09 Drug: Acetaminophen 650 mg [acetaminophen 325 mg tablet (2 tabs)] Route: PO; [facility] 13:14 Follow up: Temp 100.2 rs3 14:45 Drug: carvedilol 25 mg [carvedilol 6.25 mg tablet (4 tabs)] Route: PO; rs3 14:45 Drug: Ramipril 5 mg [ramipril 5 mg capsule (1 caps)] Route: PO; rs3 14:45 Drug: hydrALAZINE 10 mg [hydralazine 20 mg/mL injection solution] Route: IV; Rate: rs3 bolus; Site: left antecubital; 16:09 Follow up: IV Status: Completed infusion rs3 14:46 Drug: Piperacillin-Tazobactam 3.375 grams [piperacillin-tazobactam 3.375 gram rs3 intravenous solution] Route: IVPB; Infused Over: 30 mins; Site: left antecubital; 16:09 Follow up: IV Status: Completed infusion rs3 14:46 Drug: Acetaminophen 650 mg [acetaminophen 325 mg tablet (2 tabs)] Route: PO; rs3 16:09 Follow up: Temp 100.2 Oral rs3 16:08 Drug: vancomycin 1 grams [vancomycin 1,000 mg intravenous injection] Route: IVPB; rs3 Infused Over: 60 mins; Site: left antecubital; Order Results: Lab Order: CBC with Diff; SPEC'M 05/02/16 01:55 Test: WHITE BLOOD COUNT; Value: 18.0; Range: 4.0-10.0; Abnormal: Above high normal; Units: K/mm3; Status: F Test: RED BLOOD COUNT; Value: 4.93; Range: 4.00-5.40; Units: M/mm3; Status: F Test: HEMOGLOBIN; Value: 13.0; Range: 12.0-16.0; Units: g/dl; Status: F Test: HEMATOCRIT; Value: 41.2; Range: 36.0-47.0; Units: %; Status: F Test: MEAN CORPUSCULAR VOLUME; Value: 83.6; Range: 80.0-96.0; Units: fl; Status: F Test: MEAN CORPUSCULAR HEMOGLOBIN; Value: 26.5; Range: 27.0-33.0; Abnormal: Below low normal; Units: pg; Status: F Test: MEAN CORPUSCULAR HGB CONC; Value: 31.7; Range: 32.0-36.5; Abnormal: Below low normal; Units: g/dl; Status: F Test: RED CELL DISTRIBUTION WIDTH; Value: 15.6; Range: 11.5-14.5; Abnormal: Above high normal; Units: %; Status: F Test: PLATELET COUNT, AUTOMATED; Value: 147; Range: 150-450; Abnormal: Below low normal; Units: k/mm3; Status: F Test: NEUTROPHILS %; Value: 92.1; Range: 36.0-66.0; Abnormal: Above high normal; Units: %; Status: F Test: LYMPH %; Value: 2.2; Range: 24.0-44.0; Abnormal: Below low normal; Units: %; Status: F Test: MONO %; Value: 4.0; Range: 0.0-5.0; Units: %; Status: F Test: EOS %; Value: 0.3; Range: 0.0-3.0; Units: %; Status: F Test: BASO %; Value: 0.8; Range: 0.0-1.0; Units: %; Status: F Test: LARGE UNSTAINED CELL %; Value: 0.6; Range: 0.0-4.0; Units: %; Status: F Test: NEUTROPHILS #; Value: 16.6; Range: 1.8-7.7; Abnormal: Above high normal; Units: K/mm3; Status: F Test: LYMPH #; Value: 0.5; Range: 1.5-4.5; Abnormal: Below low normal; Units: K/mm3; Status: F Test: MONO #; Value: 0.7; Range: 0.0-0.8; Units: K/mm3; Status: F Test: EOS #; Value: 0.0; Range: 0.0-0.50; Units: K/mm3; Status: F Test: BASO #; Value: 0.2; Range: 0.0-0.2; Units: K/mm3; Status: F Test: LARGE UNSTAINED CELL #; Value: 0.1; Range: 0.0-0.4; Units: K/mm3; Status: F Lab Order: MED Profile; [facility]' 05/02/16 01:55 Test: GLUCOSE, FASTING; Value: 132; Range: 80-110; Abnormal: Above high normal; Units: MG/DL; Status: F Test: BLOOD UREA NITROGEN; Value: 21; Range: 7-18; Abnormal: Above high normal; Units: MG/DL; Status: F Test: CREATININE FOR GFR; Value: 1.24; Range: 0.55-1.02; Abnormal: Above high normal; Units: MG/DL; Status: F Test: GLOMERULAR FILTRATION RATE; Value: 45.7; Range: >45; Status: F Test: SODIUM LEVEL; Value: 143; Range: 136-145; Units: MEQ/L; Status: F Test: POTASSIUM SERUM; Value: 5.0; Range: 3.5-5.1; Units: MEQ/L; Status: F Test: CHLORIDE LEVEL; Value: 104; Range: 98-107; Units: MEQ/L; Status: F Test: CARBON DIOXIDE LEVEL; Value: 29; Range: 21-32; Units: MEQ/L; Status: F Test: ANION GAP; Value: 10; Range: 8-16; Units: MEQ/L; Status: F Test: CALCIUM LEVEL; Value: 9.0; Range: 8.8-10.2; Units: MG/DL; Status: F Test Note: ; Units are mL/min/1.73 m2 Chronic Kidney Disease Staging per NKF: Stage I & II GFR >=60 Normal to Mildly Decreased Stage III GFR 30-59 Moderately Decreased Stage IV GFR 15-29 Severely Decreased Stage V GFR <15 Very Little GFR Left ESRD GFR <15 on [facility] Lab Order: Urinalysis: catheterize. thanks; SPEC'M 05/02/16 03:21 Test: APPEARANCE, URINE; Value: CLEAR; Range: CLEAR; Status: F Test: COLOR, URINE; Value: YELLOW; Range: YELLOW; Status: F Test: PH,URINE; Value: 7.0; Range: 5.0-9.0; Units: UNITS; Status: F Test: SPECIFIC GRAVITY URINE AUTO; Value: 1.016; Range: 1.002-1.035; Status: F Test: PROTEIN, URINE AUTO; Value: NEGATIVE; Range: NEGATIVE; Units: mg/dL; Status: F Test: GLUCOSE, URINE (UA) AUTO; Value: NEGATIVE; Range: NEGATIVE; Units: mg/dL; Status: F Test: KETONE, URINE AUTO; Value: TRACE; Range: NEGATIVE; Abnormal: Above high normal; Units: mg/dL; Status: F Test: UROBILINOGEN, URINE AUTO; Value: 0.2; Range: 0.0-2.0; Units: mg/dL; Status: F Test: BILIRUBIN, URINE AUTO; Value: NEGATIVE; Range: NEGATIVE; Status: F Test: NITRITE, URINE AUTO; Value: NEGATIVE; Range: NEGATIVE; Status: F Test: LEUKOCYTE ESTERASE, URINE AUTO; Value: NEGATIVE; Range: NEGATIVE; Status: F Test: BLOOD, URINE BLOOD; Value: NEGATIVE; Range: NEGATIVE; Status: F Test: WBC, URINE AUTO; Value: 0; Range: 0-3; Units: /HPF; Status: F Test: RBC, URINE AUTO; Value: 1; Range: 0-3; Units: /HPF; Status: F Test: BACTERIA, URINE AUTO; Value: NEGATIVE; Range: NEGATIVE; Status: F Test: SQUAMOUS EPITHELIAL CELL UR AU; Value: 0; Range: 0-6; Units: /HPF; Status: F Test: MUCUS, URINE; Value: SMALL; Range: NEGATIVE; Status: F Test: HYALINE CAST, URINE AUTO; Value: 0; Range: 0-1; Units: /LPF; Status: F Lab Order: Lactic Acid (Crouch tube on ice); SPEC'M 05/02/16 07:53 Test: LACTIC ACID LEVEL, LACTATE; Value: 1.3; Range: 0.4-2.0; Units: MMOL/L; Status: F Lab Order: -Influenza A&B Rapid Antigen - Nose; SPEC'M 05/02/16 07:53 Test: INFLUENZA A RAPID SCR by ICA; Value: INFLUENZA A RESULTS NEGATIVE; Status: F Test: INFLUENZA A RAPID SCR by ICA; Value: Comments:; Status: F Test: INFLUENZA B RAPID SCR by ICA; Value: INFLUENZA B RESULTS NEGATIVE; Status: F Test Note: ; The Influenza test is a direct rapid immunoassay for the qualitative detection of Influenza viral antigen. Cell culture (Viral Culture) testing should be considered to confirm NEGATIVE results and to assist in detecting other viruses that can provide similar clinical symptoms. Please contact the lab within 24 hours ([phone] if confirmatory testing is desired. Lab Order: Liver Profile; SPEC'M 05/02/16 07:53 Test: AST/SGOT; Value: 18; Range: 15-37; Units: U/L; Status: F Test: ALT/SGPT; Value: 18; Range: 12-78; Units: U/L; Status: F Test: ALKALINE PHOSPHATASE; Value: 100; Range: 45-117; Units: U/L; Status: F Test: BILIRUBIN,TOTAL; Value: 1.0; Range: 0.2-1.0; Units: MG/DL; Status: F Test: BILIRUBIN,DIRECT; Value: 0.3; Range: 0.0-0.2; Abnormal: Above high normal; Units: MG/DL; Status: F Test: TOTAL PROTEIN; Value: 7.4; Range: 6.4-8.2; Units: GM/DL; Status: F Test: ALBUMIN; Value: 4.1; Range: 3.2-5.2; Units: GM/DL; Status: F Test: ALBUMIN/GLOBULIN RATIO; Value: 1.24; Range: 1.00-1.93; Status: F Lab Order: Lipase; SPEC'M 05/02/16 07:53 Test: LIPASE; Value: 86; Range: 73-393; Units: U/L; Status: F Lab Order: THYROID PROFILE; SPEC'M 05/02/16 07:53 Test: T UPTAKE; Value: 31; Range: 30-39; Units: %; Status: F Test: THYROXINE (T4); Value: 10.6; Range: 4.5-12.0; Units: UG/DL; Status: F Test: FREE THYROXINE INDEX; Value: 3.3; Range: 1.3-4.8; Units: %; Status: F Test: THYROID STIMULATING HORMONE; Value: 2.200; Range: 0.358-3.740; Units: uIU/ML; Status: F Lab Order: LACTIC ACID LEVEL, LACTATE; SPEC'M 05/02/16 14:38 Test: LACTIC ACID LEVEL, LACTATE; Value: 1.1; Range: 0.4-2.0; Units: MMOL/L; Status: F Radiology Order: Tibia/Fibula Test: Tibia/Fibula REASON FOR EXAMINATION: Trauma; Left tibia and fibula series ; ; Indication: Trauma; ; Findings: Study is somewhat limited by patient positioning and overlying pacer; splint; ; The left tibial and fibular shafts are without fracture or dislocation. There is; moderate tricompartment joint space narrowing within the knee. There is a large; plantar calcaneal spur.; ; Vascular calcifications, likely phleboliths identified within the left lower leg; ; Impression:; ; No acute fracture dislocation in the left tibial and fibular shaft.; ; ; Signed by; Pebbles Lo MD 05/02/2016 08:40 A; Radiology Order: Ultrasound LE Unilateral R/O DVT Test: Ultrasound LE Unilateral R/O DVT REASON FOR EXAMINATION: Deformity/Swelling; ; CLINICAL HISTORY: Edema.; COMMENTS:; Real time sonography with duplex doppler of the left lower extremity was performed with attention to; the major deep venous structures.; Evaluation reveals the left common femoral, superficial femoral and popliteal veins to be completely; compressible without intraluminal thrombus. There is normal spontaneous phasic flow and augmentation.; The greater saphenous/common femoral vein junction is patent.; IMPRESSION:; No evidence of DVT in left lower extremity..; Thank you for your kind referral of this patient.; ; Radiology Order: Chest, 2 View (pa\E\lat) Test: Chest, 2 View (pa\E\lat) REASON FOR EXAMINATION: Shortness of Breath; AP sitting and lateral chest radiographs 05/02/2016; ; Indication shortness of breath; ; Comparison: AP and lateral chest radiograph 02/24/2016, and PA and lateral chest; 02/13/2016; ; The cardiac silhouette is mildly enlarged without change there is persistent; ectasia of thoracic aorta. There are diminished lung volumes . There is; persistent eventration of the right hemidiaphragm .Bibasilar atelectatic changes; are noted. Interstitial prominence is contributed to by portable technique and; large body habitus.; ; There are moderate to advanced degenerative changes in the thoracic spine; ; Impression:; ; Mild cardiomegaly without change. Bibasilar atelectasis. Prominence of the; interstitium contributed to by portable technique and large body habitus.; ; ; ; ; Signed by; Pebbles Lo MD 05/02/2016 08:17 A; Radiology Order: CT Chest Angio R/O PE Test: CT Chest Angio R/O PE REASON FOR EXAMINATION: hypoxia SOB; CTA chest 05/02/2016; ; Indication: Hypoxia, shortness of breath; ; Technique: Following dynamic IV contrast enhancement with 75 ml Isovue 370; mg/ml, 3 mm contiguous spiral axial sections are performed through the chest; ; Findings: The study is limited by large body habitus and extensive streak; artifact. The thoracic aorta is without aneurysm or dissection. The study is; somewhat limited by streak artifact and large body habitus. The cardiac; silhouette is mildly enlarged. The pulmonary arteries are opacified through at; least the lobe are pulmonary artery levels without intraluminal filling defects.; The more peripheral pulmonary arteries are limited in visualization. There are; scattered mediastinal nodes , mildly enlarged. There are no pathologically; enlarged hilar nodes.; ; There is dependent atelectasis within the lower lobes primarily, and to a lesser; extent the dependent portion of the upper lobes. There are no alveolar; infiltrates or pleural effusions. Prominence of pulmonary vasculature system; with pulmonary venous hypertension.; ; Visualized portions of liver without focal lesion. The spleen mildly enlarged; 13.4 cm cranial caudal dimension. Lies portions of gallbladder without stones; ; Impression:; ; Limited study due to large body habitus and extensive streak artifact especially; within the superior vena cava. The pulmonary arteries are opacified through the; lobar artery levels bilaterally without visualized filling defect . The more; peripheral pulmonary arteries cannot be adequately assessed due to limitations; described above. May consider follow-up study.; ; Bibasilar atelectasis. Pulmonary venous hypertension; ; Mild splenomegaly; ; Discussed with Dr. Mcarthur in ED on 05/02/16 at 1030 am; ; ; ; ; Signed by; Pebbles Lo MD 05/02/2016 10:37 A; Outcome: 04:53 Discharge ordered by Provider. cs11 09:42 Decision to Hospitalize by Provider. sd1 12:47 Condition: stable. rs3 16:10 Discharge Assessment: patient administered narcotics - no. The following High Risk 3 Discharge criteria are identified: None. Admitted to PCU accompanied by nurse, accompanied by tech, via stretcher, with oxygen, on monitor, with chart. No special radiology studies were completed. Admission hand-off: Report Faxed Fax receipt verified by unit staff. Property :Personal belongings accompany Pt. 16:16 Patient left the ED. rs3 Signatures: Dispatcher [employer] EDMS Azucena Robertson MD MD sd1 Adrienne Bourne, RN RN Catina Lynn, Devon Reg Myrtle Canela RN RN jo3 Orlin Robert, SOLID WASTE COLLECTOR SOLID WASTE COLLECTOR kb5 Ketty HarpRN RN rs3 Michelle Lou br3 Connie Sequeira, PSA PSA jfb Rajan Welsh, DO DO cs11 Helen Zapata,Kelli Valerio RN,RN RN Isaiah Barboza rn1 Erin Woodward Corrections: (The following items were deleted from the chart) 12:47 12:47 Discharge Assessment: patient administered narcotics - yes. Patient was admitted rs3 to the hospital or transferred to another facility. rs3 12:47 12:47 The following High Risk Discharge criteria are identified: None. Admitted to OR rs3 accompanied by nurse, family with patient, via stretcher, on monitor, with chart, rs3 12:47 12:47 No special radiology studies were completed 3 3 :47 12:47 Property :Personal belongings accompany Pt. rs3 3 12:47 12:47 Admission hand-off: Report called to or staff 3 3 Chart Complete MTDD
[2016-05-04] MEDS: FLUCONAZOLE 200 MG in APPROPRIATE DILUENT 1 EA IV SCH (17:58)
--- NOTE | 2016-05-04 21:18 | PHACANCOPD ---
PHARMACY VANCOMYCIN DOSING Pt Demographics Demographics Patient Age:71 , Weight:135.000 , Gender: female Adjusted Body Weight Date: 05/02/16, Adjusted Body Weight: Kg Vancomycin Vancomycin indication: CELLULITIS Vancomycin Target Ranges: 15-20 mcg/ml Vancomycin Load Y/N: Yes Load Dose Date Time Vancomycin Load Dose: 2GRAMS Date: 07/03/15 Time: 1413 Vancomycin Dose Date: 05/03/16. Current Vancomycin Dose: [1GRAM IV Q18H @0900] Intermittent Dosing?: No Labs Micro Microbiology 05/02/16 Blood Culture - Preliminary, Resulted 05/02/16 Blood Culture - Preliminary, Resulted 05/02/16 Influenza Virus Type A Antigen - Final, Complete 05/02/16 Influenza Virus Type B Antigen - Final, Complete 05/02/16 Urine Culture, Received Pending Creatinine Clearance Date:05/02/16. Creatinine Clearance: [38.12]. Pending Labs VANCO TROUGH 05/04/16 @1999 Assessment and Plan Maintaining Current Dose?: Yes Reason for dose change: No Dose Change Pharmacist Note Pharmacist Note Date: 05/04/16. Pharmacist note:Vancomycin trough drawn tonight@1999: 16.4 reported:patient scr improving-1.36 this am:Will continue Vancomycin regimen of 1 Gram Q18 hours and continue to monitor Date: 05/02/16. Pharmacist note: Patient will be administered a 2 gram loading dose followed by 1 gram every 18 hours starting tomorrow ( 05/03 @0900). Trough is scheduled for 05/04 @1999. Blood and urine cultures are pending. Dosing was based on a previous admission in February in which the patient was ordered on vanco. Continue current dosing and adjust as needed. [facility]ANU [facility] May 04, 2016 21:18
[2016-05-04 22:00] VITALS: BP 132/81
[2016-05-05 02:00] VITALS: BP 122/83
[2016-05-05] MEDS: PIPERACILLIN/TAZOBACTAM SOD 3.375 GM in D5W MINI-BAG PLUS 50 ML IV SCH ×4 (02:07→20:18)
[2016-05-05] MEDS: ACETAMINOPHEN TAB 650MG DOSE (2X325MG) PO PRN (05:43)
[2016-05-05] MEDS: HEPARIN SOD (PORCINE) 5000 UNITS/ML VIAL SQ SCH ×3 (05:43→21:21)
[2016-05-05 06:00] VITALS: BP 137/88
[2016-05-05 06:34] LABS: MEAN CORPUSCULAR HEMOGLOBIN 26.9 pg (27.0-33.0); MEAN CORPUSCULAR HGB CONC 32.6 g/dl (32.0-36.5); MEAN CORPUSCULAR VOLUME 82.4 fl (80.0-96.0); RED CELL DISTRIBUTION WIDTH 14.8 % (11.5-14.5); WHITE BLOOD COUNT 4.5 K/mm3 (4.0-10.0)
[2016-05-05 06:53] LABS: CALCIUM LEVEL 8.3 MG/DL (8.8-10.2); CREATININE FOR GFR 1.1 MG/DL (0.55-1.02); GLOMERULAR FILTRATION RATE 52.4 (>45)
[2016-05-05 07:26] LABS: EOSINOPHILS 3 % (0-5)
[2016-05-05 07:27] LABS: ANISOCYTOSIS 1+
[2016-05-05] MEDS: rOPINIRole 1MG TAB PO SCH ×3 (09:19→21:21)
[2016-05-05] MEDS: CARVedilol 12.5 MG TAB PO SCH ×2 (09:20→21:22)
[2016-05-05] MEDS: ESCITALOPRAM OXALATE 10 MG TAB (LEXAPRO) PO SCH (09:20)
[2016-05-05] MEDS: PREGABALIN 75 MG CAP(LYRICA) PO SCH ×2 (09:20→21:21)
[2016-05-05] MEDS: PANTOPRAZOLE 40MG TAB (PROTONIX) PO SCH (09:20)
[2016-05-05] MEDS: ASPIRIN 81 MG ENTERIC TAB PO SCH (09:21)
[2016-05-05] MEDS: MULTIVITAMINS/MINERALS THERAP 1 TAB PO SCH (09:21)
[2016-05-05] MEDS: PERCOCET 5MG/325MG TAB PO SCH ×3 (09:21→21:23)
[2016-05-05] MEDS: NYSTATIN 100,000 UNITS/GM TOPICAL PWD 15 GM TOP PRN (09:22)
[2016-05-05 10:00] VITALS: BP 130/95
[2016-05-05] MEDS: NS 1,000 ML IV SCH (11:20)
--- NOTE | 2016-05-05 11:21 | IPNPDOC ---
Text Note Date of Service The patient was seen on 05/05/16 at 11:20. NOTE Subjective: Patient states she feels weak today. Denies any CP/SOB/palpitations. Objective: Vitals: (see below) General: No acute distress, laying comfortably in bed. HEENT: Moist mucous membranes. Neck: No JVD or lymphadenopathy Cardiac: RRR, No murmurs Pulm: Diminished breath sounds at the bases b/l. No wheezing,no rhonchi Abd: NT/ND + BS. Ext: LLE with erythema and warmth, slightly improved. Distal pulses intact. Trace to 1+ Pitting edema BLE. Labs (see below) Images: LE u/s 05/02/16 IMPRESSION: No evidence of DVT in left lower extremity.. Left tibial x ray 05/02/16 Impression: No acute fracture dislocation in the left tibial and fibular shaft. CXR 05/02/16 Impression: Mild cardiomegaly without change. Bibasilar atelectasis. Prominence of the interstitium contributed to by portable technique and large body habitus. CTA Chest 05/02/16 Impression: Limited study due to large body habitus and extensive streak artifact especially within the superior vena cava. The pulmonary arteries are opacified through the lobar artery levels bilaterally without visualized filling defect . The more peripheral pulmonary arteries cannot be adequately assessed due to limitations described above. May consider follow-up study. Assessment/Plan Sepsis 2/2 LLE cellulitis - patient with leukocytosis and hypoxia on presentation. Blood cx with pseudomonas - vanc has been d/c. On Zosyn. Lactic acid 1.3. History of recurrent UTIs however UA negative. CTA with no PE. Chest x -ray with no infiltrates. We'll trend CRP. Cont IVF. CKD stage III- creatinine stable for nephrotoxins. Hypertension- continue home meds Chronic lower back pain- continue home meds Anxiety- continue home meds DVT prophylaxis- heparin subcutaneous Physical therapy VS,Fishbone, I+O VS, Fishbone, I+O Laboratory Tests 05/05/16 06:03 Calcium Level 8.3 L Vital Signs Date Time Temp Pulse Resp B/P Pulse Ox O2 Delivery O2 Flow Rate FiO2 05/05/16 10:00 97.2 68 22 130/95 95 Room Air 05/03/16 17:44 2.0 I&O- Last 24 Hours up to 6 AM 05/05/16 06:00 Intake Total 1440 ml Output Total 1055 ml Balance 385 ml LILLIE GOODMAN MD May 05, 2016 11:21
[2016-05-05 14:00] VITALS: BP 107/72
[2016-05-05] MEDS: FLUCONAZOLE 100 MG TAB PO SCH (14:52)
[2016-05-05 18:00] VITALS: BP 146/94
[2016-05-05 22:00] VITALS: BP 130/80
[2016-05-06 02:00] VITALS: BP 138/57
[2016-05-06] MEDS: NS 1,000 ML IV SCH (02:57)
[2016-05-06] MEDS: PIPERACILLIN/TAZOBACTAM SOD 3.375 GM in D5W MINI-BAG PLUS 50 ML IV SCH ×4 (02:57→20:37)
[2016-05-06 04:00] VITALS: BP 146/70
[2016-05-06 05:57] LABS: MEAN CORPUSCULAR HEMOGLOBIN 27.1 pg (27.0-33.0); MEAN CORPUSCULAR HGB CONC 32.4 g/dl (32.0-36.5); MEAN CORPUSCULAR VOLUME 83.6 fl (80.0-96.0); RED CELL DISTRIBUTION WIDTH 14.6 % (11.5-14.5); WHITE BLOOD COUNT 4.6 K/mm3 (4.0-10.0)
[2016-05-06 06:00] VITALS: BP 146/70
[2016-05-06 06:17] LABS: CALCIUM LEVEL 8.5 MG/DL (8.8-10.2); GLOMERULAR FILTRATION RATE 58.5 (>45); POTASSIUM SERUM 4.1 MEQ/L (3.5-5.1)
[2016-05-06] MEDS: HEPARIN SOD (PORCINE) 5000 UNITS/ML VIAL SQ SCH ×3 (06:25→21:18)
[2016-05-06 07:10] LABS: EOSINOPHILS 5 % (0-5)
[2016-05-06] MEDS: FLUCONAZOLE 100 MG TAB PO SCH (09:19)
[2016-05-06] MEDS: rOPINIRole 1MG TAB PO SCH ×3 (09:19→20:39)
[2016-05-06] MEDS: PANTOPRAZOLE 40MG TAB (PROTONIX) PO SCH (09:19)
[2016-05-06] MEDS: PREGABALIN 75 MG CAP(LYRICA) PO SCH ×2 (09:19→20:37)
[2016-05-06] MEDS: ESCITALOPRAM OXALATE 10 MG TAB (LEXAPRO) PO SCH (09:20)
[2016-05-06] MEDS: ASPIRIN 81 MG ENTERIC TAB PO SCH (09:20)
[2016-05-06] MEDS: CARVedilol 12.5 MG TAB PO SCH ×2 (09:20→20:39)
[2016-05-06] MEDS: PERCOCET 5MG/325MG TAB PO SCH ×3 (09:20→20:38)
[2016-05-06] MEDS: MULTIVITAMINS/MINERALS THERAP 1 TAB PO SCH (09:20)
[2016-05-06 14:00] VITALS: BP 112/69
--- NOTE | 2016-05-06 14:05 | IPNPDOC ---
Text Note Date of Service The patient was seen on 05/06/16 at 14:04. NOTE Subjective: Patient states she feels well today. Denies any CP/SOB/palpitations. Objective: Vitals: (see below) General: No acute distress, laying comfortably in bed. HEENT: Moist mucous membranes. Neck: No JVD or lymphadenopathy Cardiac: RRR, No murmurs Pulm: Diminished breath sounds at the bases b/l. No wheezing,no rhonchi Abd: NT/ND + BS. Ext: LLE with erythema and warmth, slightly improved. Distal pulses intact. Trace to 1+ Pitting edema BLE. Labs (see below) Images: LE u/s 05/02/16 IMPRESSION: No evidence of DVT in left lower extremity.. Left tibial x ray 05/02/16 Impression: No acute fracture dislocation in the left tibial and fibular shaft. CXR 05/02/16 Impression: Mild cardiomegaly without change. Bibasilar atelectasis. Prominence of the interstitium contributed to by portable technique and large body habitus. CTA Chest 05/02/16 Impression: Limited study due to large body habitus and extensive streak artifact especially within the superior vena cava. The pulmonary arteries are opacified through the lobar artery levels bilaterally without visualized filling defect . The more peripheral pulmonary arteries cannot be adequately assessed due to limitations described above. May consider follow-up study. Assessment/Plan Sepsis / LLE cellulitis - patient with leukocytosis and hypoxia on presentation. Blood cx with pseudomonas - vanc has been d/c. On Zosyn. Lactic acid 1.3. History of recurrent UTIs however UA negative. CTA with no PE. Chest x -ray with no infiltrates. We'll trend CRP. Cont IVF. CKD stage III- creatinine stable for nephrotoxins. Hypertension- continue home meds Chronic lower back pain- continue home meds Anxiety- continue home meds DVT prophylaxis- heparin subcutaneous Physical therapy - pt is max assist. May need inpatient rehabilitation. VS,Fishbone, I+O VS, Fishbone, I+O Laboratory Tests 05/06/16 05:24 Calcium Level 8.5 L Vital Signs Date Time Temp Pulse Resp B/P Pulse Ox O2 Delivery O2 Flow Rate FiO2 05/06/16 09:51 20 Room Air 05/06/16 09:20 65 146/70 05/06/16 06:00 98.5 94 05/03/16 17:44 2.0 I&O- Last 24 Hours up to 6 AM 05/06/16 06:00 Intake Total 1230 ml Output Total 350 ml Balance 880 ml LILLIE GOODMAN MD May 06, 2016 14:05
[2016-05-06 18:00] VITALS: BP 108/54
[2016-05-06 22:00] VITALS: BP 129/88
[2016-05-07] MEDS: PIPERACILLIN/TAZOBACTAM SOD 3.375 GM in D5W MINI-BAG PLUS 50 ML IV SCH ×4 (01:28→19:47)
[2016-05-07] MEDS: ACETAMINOPHEN TAB 650MG DOSE (2X325MG) PO PRN (04:10)
[2016-05-07] MEDS: NS 1,000 ML IV SCH ×2 (04:10→12:45)
[2016-05-07] MEDS: HEPARIN SOD (PORCINE) 5000 UNITS/ML VIAL SQ SCH ×3 (05:14→21:38)
[2016-05-07 05:57] LABS: MEAN CORPUSCULAR HEMOGLOBIN 26.4 pg (27.0-33.0); MEAN CORPUSCULAR HGB CONC 31.8 g/dl (32.0-36.5); MEAN CORPUSCULAR VOLUME 82.9 fl (80.0-96.0); RED CELL DISTRIBUTION WIDTH 14.5 % (11.5-14.5); WHITE BLOOD COUNT 4.4 K/mm3 (4.0-10.0)
[2016-05-07 06:00] VITALS: BP 110/80
[2016-05-07 06:18] LABS: CALCIUM LEVEL 8.4 MG/DL (8.8-10.2); CREATININE FOR GFR 1.06 MG/DL (0.55-1.02); GLOMERULAR FILTRATION RATE 54.7 (>45); POTASSIUM SERUM 4.1 MEQ/L (3.5-5.1)
[2016-05-07 07:08] LABS: BANDS 2 % (< 11); EOSINOPHILS 5 % (0-5)
[2016-05-07 07:09] LABS: ANISOCYTOSIS 1+
[2016-05-07] MEDS: PERCOCET 5MG/325MG TAB PO SCH ×3 (08:26→21:38)
[2016-05-07 09:56] VITALS: BP 128/72
[2016-05-07] MEDS: rOPINIRole 1MG TAB PO SCH ×3 (10:07→21:38)
[2016-05-07] MEDS: CARVedilol 12.5 MG TAB PO SCH ×2 (10:09→21:37)
[2016-05-07] MEDS: ESCITALOPRAM OXALATE 10 MG TAB (LEXAPRO) PO SCH (10:09)
[2016-05-07] MEDS: ASPIRIN 81 MG ENTERIC TAB PO SCH (10:10)
[2016-05-07] MEDS: MULTIVITAMINS/MINERALS THERAP 1 TAB PO SCH (10:10)
[2016-05-07] MEDS: PREGABALIN 75 MG CAP(LYRICA) PO SCH ×2 (10:10→21:38)
[2016-05-07] MEDS: PANTOPRAZOLE 40MG TAB (PROTONIX) PO SCH (10:10)
--- NOTE | 2016-05-07 11:50 | IPNPDOC ---
Text Note Date of Service The patient was seen on 05/07/16 at 11:39. NOTE Subjective: Patient is a 71 year old female with a PMHx of Parkinson's, spinal stenosis, recurrent UTIs, history of Left humerus fracture, HTN, and recurrent cellulitis who presented to the ER with generalized weakness and mechanical fall. Patient was found to have cellulitis of her left lower extremity. Blood cultures were found to be positive for pseudomonas. Patient was seen and examined at the bedside. Clinically she reports that she is still experiencing some leg pain. She notes that she is making some progress with physical therapy. Objective: Vitals: (see below) General: Lying in bed, No acute distress, AAOx3 HEENT: NC, AT CVS: RRR, +S1S2 Lungs: Fair air entry b/l, - w/r/r Abdomen: Soft, NT, ND, Obese, + BS Extremities: LLE with erythema and warmth - decreased from demarkation line, distal pulses intact. Trace to 1+ Pitting edema b/l Assessment and plan: 1. Sepsis 2/2 left lower extremity cellulitis - clinically has improvement; decreasing from demarkation line - Leukocytosis resolved; CRP trending down - Blood cultures 05/02 positive for Pseudomonas; Blood cultures 05/05 negative - c/w NS at 60 cc/hr - c/w Zosyn (Day #6) 2. CKD (Stage 3) - Cr has been trending down 3. HTN - c/w home BP medications with holding parameters 4. Chronic lower back pain 2/2 spinal stenosis 5. Anxiety - c/w Escitalopram 6. GI prophylaxis - c/w protonix 7. DVT prophylaxis - c/w heparin Disposition: - will continue with IV antibiotics until improved - will c/w PT/OT evaluation and treatment VS,Fishbone, I+O VS, Fishbone, I+O Laboratory Tests 05/07/16 05:44 Calcium Level 8.4 L Vital Signs Date Time Temp Pulse Resp B/P Pulse Ox O2 Delivery O2 Flow Rate FiO2 05/07/16 10:26 Room Air 05/07/16 10:09 68 128/72 05/07/16 09:56 98.1 20 95 05/03/16 17:44 2.0 I&O- Last 24 Hours up to 6 AM 05/07/16 06:00 Intake Total 1040 ml Output Total 225 ml Balance 815 ml SVETLANA KONG MD May 07, 2016 11:50
[2016-05-07 14:00] VITALS: BP 122/74
[2016-05-07 16:00] VITALS: BP 124/86
[2016-05-07 18:00] VITALS: BP 130/86
[2016-05-07 22:00] VITALS: BP 122/80
[2016-05-08] VITALS (10 sets, daily range): BP systolic 122–213; BP diastolic 72–102
[2016-05-08] MEDS: PIPERACILLIN/TAZOBACTAM SOD 3.375 GM in D5W MINI-BAG PLUS 50 ML IV SCH ×4 (01:35→20:00)
[2016-05-08] MEDS: ACETAMINOPHEN TAB 650MG DOSE (2X325MG) PO PRN (05:54)
[2016-05-08] MEDS: HEPARIN SOD (PORCINE) 5000 UNITS/ML VIAL SQ SCH ×3 (05:54→21:19)
[2016-05-08 06:10] LABS: BASO % 0.8 % (0.0-1.0); EOS # 0.2 K/mm3 (0.0-0.50); EOS % 3.9 % (0.0-3.0); LARGE UNSTAINED CELL # 0.1 K/mm3 (0.0-0.4); LARGE UNSTAINED CELL % 2.1 % (0.0-4.0); LYMPH # 1.1 K/mm3 (1.5-4.5); LYMPH % 18.2 % (24.0-44.0); MEAN CORPUSCULAR HEMOGLOBIN 26.6 pg (27.0-33.0); MEAN CORPUSCULAR HGB CONC 31.5 g/dl (32.0-36.5); MEAN CORPUSCULAR VOLUME 84.4 fl (80.0-96.0); MONO # 0.4 K/mm3 (0.0-0.8); MONO % 6.9 % (0.0-5.0); NEUTROPHILS # 3.7 K/mm3 (1.8-7.7); NEUTROPHILS % 68.1 % (36.0-66.0); PLATELET COUNT, AUTOMATED 165 k/mm3 (150-450); RED CELL DISTRIBUTION WIDTH 15.6 % (11.5-14.5); WHITE BLOOD COUNT 5.4 K/mm3 (4.0-10.0)
[2016-05-08 06:32] LABS: CALCIUM LEVEL 8.5 MG/DL (8.8-10.2); CREATININE FOR GFR 1.06 MG/DL (0.55-1.02); GLOMERULAR FILTRATION RATE 54.7 (>45)
[2016-05-08] MEDS: NS 1,000 ML IV SCH (09:42)
[2016-05-08] MEDS: CARVedilol 12.5 MG TAB PO SCH ×2 (09:49→21:19)
[2016-05-08] MEDS: PANTOPRAZOLE 40MG TAB (PROTONIX) PO SCH (09:49)
[2016-05-08] MEDS: rOPINIRole 1MG TAB PO SCH ×3 (09:50→21:20)
[2016-05-08] MEDS: MULTIVITAMINS/MINERALS THERAP 1 TAB PO SCH (09:50)
[2016-05-08] MEDS: PERCOCET 5MG/325MG TAB PO SCH ×3 (09:50→21:21)
[2016-05-08] MEDS: ESCITALOPRAM OXALATE 10 MG TAB (LEXAPRO) PO SCH (09:50)
[2016-05-08] MEDS: PREGABALIN 75 MG CAP(LYRICA) PO SCH ×2 (09:50→21:20)
[2016-05-08] MEDS: ASPIRIN 81 MG ENTERIC TAB PO SCH (09:50)
[2016-05-08] MEDS: LISINOPRIL 10 MG TAB PO SCH (11:26)
--- NOTE | 2016-05-08 11:47 | IPNPDOC ---
Text Note Date of Service The patient was seen on 05/08/16 at 11:45. NOTE Subjective: Patient is a 71 year old female with a PMHx of Parkinson's, spinal stenosis, recurrent UTIs, history of Left humerus fracture, HTN, and recurrent cellulitis who presented to the ER with generalized weakness and mechanical fall. Patient was found to have cellulitis of her left lower extremity. Blood cultures were found to be positive for pseudomonas. Patient was seen and examined at the bedside. Clinically she reports that she is still experiencing some leg pain. She notes that she is making some progress with physical therapy. Objective: Vitals: (see below) General: Lying in bed, No acute distress, AAOx3 HEENT: NC, AT CVS: RRR, +S1S2 Lungs: Fair air entry b/l, - w/r/r Abdomen: Soft, NT, ND, Obese, + BS Extremities: LLE with erythema and warmth - decreased from demarkation line, distal pulses intact. Trace to 1+ Pitting edema b/l Assessment and plan: 1. Sepsis 2/2 left lower extremity cellulitis - clinically has improvement; decreasing from demarkation line - Leukocytosis resolved; CRP continues to trend down - Blood cultures 05/02 positive for Pseudomonas; Blood cultures 05/05 negative - will discontinue NS at 60 cc/hr - c/w Zosyn (Day #7) 2. CKD (Stage 3) - Cr has been trending down 3. HTN - c/w home BP medications with holding parameters - will restart VIVI-I 4. Chronic lower back pain 2/2 spinal stenosis 5. Anxiety - c/w Escitalopram 6. GI prophylaxis - c/w protonix 7. DVT prophylaxis - c/w heparin Disposition: - will continue with IV antibiotics until improved - will c/w PT/OT evaluation and treatment VS,Fishbone, I+O VS, Fishbone, I+O Laboratory Tests 05/08/16 05:35 Calcium Level 8.5 L, Red Blood Count 4.08, Mean Corpuscular Volume 84.4, Mean Corpuscular Hemoglobin 26.6 L, Mean Corpuscular Hemoglobin Concent 31.5 L, Red Cell Distribution Width 15.6 H, Neutrophils (%) (Auto) 68.1 H, Lymphocytes (%) ( Auto) 18.2 L, Monocytes (%) (Auto) 6.9 H, Eosinophils (%) (Auto) 3.9 H, Basophils (%) (Auto) 0.8, Neutrophils # (Auto) 3.7, Lymphocytes # (Auto) 1.1 L, Monocytes # (Auto) 0.4, Eosinophils # (Auto) 0.2, Basophils # (Auto) 0.0 Vital Signs Date Time Temp Pulse Resp B/P Pulse Ox O2 Delivery O2 Flow Rate FiO2 05/08/16 11:26 192/100 05/08/16 10:58 63 05/08/16 10:26 18 Room Air 05/08/16 10:00 97.8 93 05/03/16 17:44 2.0 I&O- Last 24 Hours up to 6 AM 05/08/16 06:00 Intake Total 2080 ml Output Total 200 ml Balance 1880 ml SVETLANA KONG MD May 08, 2016 11:47
[2016-05-08] MEDS ORDERED: **hydrALAZINE** 10 MG TAB PO ONE (13:30)
[2016-05-08] MEDS ORDERED: **hydrALAZINE HCL** 25 MG TAB PO ONE (15:30)
[2016-05-09] MEDS: PIPERACILLIN/TAZOBACTAM SOD 3.375 GM in D5W MINI-BAG PLUS 50 ML IV SCH ×4 (01:28→20:50)
[2016-05-09 02:00] VITALS: BP 142/79
[2016-05-09] MEDS: HEPARIN SOD (PORCINE) 5000 UNITS/ML VIAL SQ SCH ×3 (05:04→20:52)
[2016-05-09] MEDS: ACETAMINOPHEN TAB 650MG DOSE (2X325MG) PO PRN (05:05)
[2016-05-09 06:00] VITALS: BP 164/89
[2016-05-09 07:31] LABS: CALCIUM LEVEL 8.6 MG/DL (8.8-10.2); CREATININE FOR GFR 1.01 MG/DL (0.55-1.02); GLOMERULAR FILTRATION RATE 57.9 (>45)
[2016-05-09 07:33] LABS: BASO % 2.2 % (0.0-1.0); EOS % 3.9 % (0.0-3.0); LARGE UNSTAINED CELL % 2.1 % (0.0-4.0); LYMPH % 13.1 % (24.0-44.0); MEAN CORPUSCULAR HEMOGLOBIN 25.8 pg (27.0-33.0); MEAN CORPUSCULAR HGB CONC 31.5 g/dl (32.0-36.5); MEAN CORPUSCULAR VOLUME 81.9 fl (80.0-96.0); MONO % 6.3 % (0.0-5.0); NEUTROPHILS # 4.8 K/mm3 (1.8-7.7); NEUTROPHILS % 72.4 % (36.0-66.0); PLATELET COUNT, AUTOMATED 179 k/mm3 (150-450); RED CELL DISTRIBUTION WIDTH 16.1 % (11.5-14.5); WHITE BLOOD COUNT 6.6 K/mm3 (4.0-10.0)
[2016-05-09 07:34] LABS: BASO # 0.1 K/mm3 (0.0-0.2); EOS # 0.3 K/mm3 (0.0-0.50); LARGE UNSTAINED CELL # 0.1 K/mm3 (0.0-0.4); LYMPH # 0.9 K/mm3 (1.5-4.5); MONO # 0.4 K/mm3 (0.0-0.8)
[2016-05-09] MEDS: PREGABALIN 75 MG CAP(LYRICA) PO SCH (08:26)
[2016-05-09] MEDS: MULTIVITAMINS/MINERALS THERAP 1 TAB PO SCH (08:26)
[2016-05-09] MEDS: PANTOPRAZOLE 40MG TAB (PROTONIX) PO SCH (08:26)
[2016-05-09] MEDS: ESCITALOPRAM OXALATE 10 MG TAB (LEXAPRO) PO SCH (08:26)
[2016-05-09] MEDS: rOPINIRole 1MG TAB PO SCH ×3 (08:26→20:50)
[2016-05-09] MEDS: ASPIRIN 81 MG ENTERIC TAB PO SCH (08:26)
[2016-05-09] MEDS: LISINOPRIL 10 MG TAB PO SCH (08:27)
[2016-05-09] MEDS: PERCOCET 5MG/325MG TAB PO SCH ×3 (08:27→20:51)
[2016-05-09] MEDS: CARVedilol 12.5 MG TAB PO SCH ×2 (08:28→20:50)
[2016-05-09] MEDS ORDERED: LISINOPRIL 10 MG TAB PO ONE (08:30)
[2016-05-09] MEDS ORDERED: LISINOPRIL 20 MG TAB PO SCH (09:00)
[2016-05-09 10:00] VITALS: BP 153/71
--- NOTE | 2016-05-09 11:40 | IPNPDOC ---
Text Note Date of Service The patient was seen on 05/09/16 at 11:38. NOTE Subjective: Patient is a 71 year old female with a PMHx of Parkinson's, spinal stenosis, recurrent UTIs, history of Left humerus fracture, HTN, and recurrent cellulitis who presented to the ER with generalized weakness and mechanical fall. Patient was found to have cellulitis of her left lower extremity. Blood cultures were found to be positive for pseudomonas. Patient was seen and examined at the bedside. She notes that she gets anxious when her blood pressure is high. She denies any leg pain. Has been making very slow progress with physical therapy. Objective: Vitals: (see below) General: Lying in bed, No acute distress, AAOx3 HEENT: NC, AT CVS: RRR, +S1S2 Lungs: Fair air entry b/l, - w/r/r Abdomen: Soft, NT, ND, Obese, + BS Extremities: LLE with improved erythema, no warmth - decreased from demarkation line, distal pulses intact. Trace to 1+ Pitting edema b/l Assessment and plan: 1. Sepsis 2/2 left lower extremity cellulitis - clinically has improvement; decreasing from demarkation line - Leukocytosis resolved; CRP continues to trend down - Blood cultures 05/02 positive for Pseudomonas; Blood cultures 05/05 negative - will discontinue NS at 60 cc/hr - c/w Zosyn (Day #8); Will transition to Levaquin when ready for discharge 2. CKD (Stage 3) - Cr has been trending down 3. HTN - BP yesterday and this morning was elevated; was given Hydralazine PO - c/w home BP medications with holding parameters - Restarted Lisinopril yesterday; will increase dose of Lisinopril from 10 to 20mg PO daily 4. Chronic lower back pain 2/2 spinal stenosis 5. Anxiety - c/w Escitalopram 6. Morbid obesity - likely affecting rehabilitation 7. GI prophylaxis - c/w protonix 8. DVT prophylaxis - c/w heparin Disposition: - will c/w PT/OT evaluation and treatment; currently will need rehabilitation outside the hospital VS,Fishbone, I+O VS, Fishbone, I+O Laboratory Tests 05/09/16 06:16 Calcium Level 8.6 L, Red Blood Count 4.19, Mean Corpuscular Volume 81.9, Mean Corpuscular Hemoglobin 25.8 L, Mean Corpuscular Hemoglobin Concent 31.5 L, Red Cell Distribution Width 16.1 H, Neutrophils (%) (Auto) 72.4 H, Lymphocytes (%) ( Auto) 13.1 L, Monocytes (%) (Auto) 6.3 H, Eosinophils (%) (Auto) 3.9 H, Basophils (%) (Auto) 2.2 H, Neutrophils # (Auto) 4.8, Lymphocytes # (Auto) 0.9 L , Monocytes # (Auto) 0.4, Eosinophils # (Auto) 0.3, Basophils # (Auto) 0.1 Vital Signs Date Time Temp Pulse Resp B/P Pulse Ox O2 Delivery O2 Flow Rate FiO2 05/09/16 10:00 98.4 69 18 153/71 91 05/08/16 21:00 Room Air 05/03/16 17:44 2.0 I&O- Last 24 Hours up to 6 AM 05/09/16 05:59 Intake Total 600 ml Output Total 0 ml Balance 600 ml SVETLANA KONG MD May 09, 2016 11:40
[2016-05-09 14:00] VITALS: BP_SYST 143; BP_SYST 148; BP_DIAS 69; BP_DIAS 88
[2016-05-09 18:00] VITALS: BP 168/98
[2016-05-09 22:00] VITALS: BP 170/96
[2016-05-10 02:00] VITALS: BP 160/90
[2016-05-10] MEDS: PIPERACILLIN/TAZOBACTAM SOD 3.375 GM in D5W MINI-BAG PLUS 50 ML IV SCH ×2 (02:06→08:26)
[2016-05-10] MEDS: HEPARIN SOD (PORCINE) 5000 UNITS/ML VIAL SQ SCH ×3 (05:42→21:01)
[2016-05-10] MEDS: ACETAMINOPHEN TAB 650MG DOSE (2X325MG) PO PRN (05:48)
[2016-05-10 06:00] VITALS: BP 168/88
[2016-05-10 06:47] LABS: MEAN CORPUSCULAR HGB CONC 32.7 g/dl (32.0-36.5); MEAN CORPUSCULAR VOLUME 82.8 fl (80.0-96.0); RED CELL DISTRIBUTION WIDTH 15.4 % (11.5-14.5); WHITE BLOOD COUNT 5.9 K/mm3 (4.0-10.0)
[2016-05-10 07:00] LABS: CALCIUM LEVEL 8.9 MG/DL (8.8-10.2); CREATININE FOR GFR 0.98 MG/DL (0.55-1.02); GLOMERULAR FILTRATION RATE 59.9 (>45); POTASSIUM SERUM 3.8 MEQ/L (3.5-5.1)
[2016-05-10 07:05] LABS: BASOPHILS 1 % (0-4); EOSINOPHILS 2 % (0-5)
[2016-05-10] MEDS: ESCITALOPRAM OXALATE 10 MG TAB (LEXAPRO) PO SCH (08:24)
[2016-05-10] MEDS: PANTOPRAZOLE 40MG TAB (PROTONIX) PO SCH (08:24)
[2016-05-10] MEDS: rOPINIRole 1MG TAB PO SCH ×3 (08:24→21:00)
[2016-05-10] MEDS: MULTIVITAMINS/MINERALS THERAP 1 TAB PO SCH (08:25)
[2016-05-10] MEDS: LISINOPRIL 20 MG TAB PO SCH (08:25)
[2016-05-10] MEDS: CARVedilol 12.5 MG TAB PO SCH ×2 (08:25→21:01)
[2016-05-10] MEDS: ASPIRIN 81 MG ENTERIC TAB PO SCH (08:25)
[2016-05-10] MEDS: PERCOCET 5MG/325MG TAB PO SCH ×3 (08:26→21:01)
[2016-05-10 09:34] VITALS: BP 152/80
[2016-05-10] MEDS: PREGABALIN 75 MG CAP(LYRICA) PO SCH ×2 (09:38→21:00)
[2016-05-10] MEDS: LevoFLOXacin 750 MG TABLET PO SCH (12:24)
[2016-05-11] MEDS: HEPARIN SOD (PORCINE) 5000 UNITS/ML VIAL SQ SCH ×3 (05:55→21:08)
[2016-05-11 06:00] VITALS: BP 146/88
[2016-05-11 07:05] LABS: ANION GAP 9 MEQ/L (8-16); BLOOD UREA NITROGEN 12 MG/DL (7-18); CALCIUM LEVEL 9.3 MG/DL (8.8-10.2); CARBON DIOXIDE LEVEL 27 MEQ/L (21-32); CHLORIDE LEVEL 105 MEQ/L (98-107); CREATININE FOR GFR 0.94 MG/DL (0.55-1.02); GLOMERULAR FILTRATION RATE > 60.0 (>45); GLUCOSE, FASTING 89 MG/DL (80-110); MEAN CORPUSCULAR HEMOGLOBIN 26.7 pg (27.0-33.0); MEAN CORPUSCULAR HGB CONC 32.3 g/dl (32.0-36.5); MEAN CORPUSCULAR VOLUME 82.5 fl (80.0-96.0); RED CELL DISTRIBUTION WIDTH 16.4 % (11.5-14.5); SODIUM LEVEL 141 MEQ/L (136-145); WHITE BLOOD COUNT 5.6 K/mm3 (4.0-10.0)
[2016-05-11 07:06] LABS: POTASSIUM SERUM 4.8 MEQ/L (3.5-5.1)
[2016-05-11 07:46] LABS: ANISOCYTOSIS 1+; BASOPHILS 1 % (0-4); EOSINOPHILS 4 % (0-5); HYPOCHROMASIA 1+
[2016-05-11] MEDS: PREGABALIN 75 MG CAP(LYRICA) PO SCH ×2 (10:19→21:10)
[2016-05-11] MEDS: CARVedilol 12.5 MG TAB PO SCH ×2 (10:19→21:14)
[2016-05-11] MEDS: NYSTATIN 100,000 UNITS/GM TOPICAL PWD 15 GM TOP PRN (10:19)
[2016-05-11] MEDS: LISINOPRIL 20 MG TAB PO SCH (10:20)
[2016-05-11] MEDS: rOPINIRole 1MG TAB PO SCH ×3 (10:20→21:09)
[2016-05-11] MEDS: PANTOPRAZOLE 40MG TAB (PROTONIX) PO SCH (10:20)
[2016-05-11] MEDS: ASPIRIN 81 MG ENTERIC TAB PO SCH (10:20)
[2016-05-11] MEDS: PERCOCET 5MG/325MG TAB PO SCH ×3 (10:20→21:10)
[2016-05-11] MEDS: MULTIVITAMINS/MINERALS THERAP 1 TAB PO SCH (10:20)
[2016-05-11 22:00] VITALS: BP 140/90
[2016-05-12] MEDS: LevoFLOXacin 750 MG TABLET PO SCH (05:27)
[2016-05-12] MEDS: HEPARIN SOD (PORCINE) 5000 UNITS/ML VIAL SQ SCH ×3 (05:27→19:56)
[2016-05-12 06:00] VITALS: BP 160/85
[2016-05-12] MEDS: ASPIRIN 81 MG ENTERIC TAB PO SCH (08:23)
[2016-05-12] MEDS: rOPINIRole 1MG TAB PO SCH ×3 (08:23→19:56)
[2016-05-12] MEDS: CARVedilol 12.5 MG TAB PO SCH ×2 (08:24→19:57)
[2016-05-12] MEDS: LISINOPRIL 20 MG TAB PO SCH (08:25)
[2016-05-12] MEDS: PREGABALIN 75 MG CAP(LYRICA) PO SCH ×2 (08:25→19:56)
[2016-05-12] MEDS: MULTIVITAMINS/MINERALS THERAP 1 TAB PO SCH (08:25)
[2016-05-12] MEDS: PANTOPRAZOLE 40MG TAB (PROTONIX) PO SCH (08:25)
[2016-05-12] MEDS: PERCOCET 5MG/325MG TAB PO SCH ×3 (08:26→19:57)
[2016-05-13] MEDS: HEPARIN SOD (PORCINE) 5000 UNITS/ML VIAL SQ SCH ×3 (05:56→20:29)
[2016-05-13 08:00] VITALS: BP 145/60
[2016-05-13] MEDS: PREGABALIN 75 MG CAP(LYRICA) PO SCH ×2 (08:53→20:30)
[2016-05-13] MEDS: LISINOPRIL 20 MG TAB PO SCH (08:53)
[2016-05-13] MEDS: MULTIVITAMINS/MINERALS THERAP 1 TAB PO SCH (08:53)
[2016-05-13] MEDS: PANTOPRAZOLE 40MG TAB (PROTONIX) PO SCH (08:53)
[2016-05-13] MEDS: ASPIRIN 81 MG ENTERIC TAB PO SCH (08:53)
[2016-05-13] MEDS: PERCOCET 5MG/325MG TAB PO SCH ×3 (08:53→20:30)
[2016-05-13] MEDS: rOPINIRole 1MG TAB PO SCH ×3 (08:53→20:30)
[2016-05-13] MEDS: CARVedilol 12.5 MG TAB PO SCH ×2 (08:54→20:30)
[2016-05-14] MEDS: LevoFLOXacin 750 MG TABLET PO SCH (06:10)
[2016-05-14] MEDS: HEPARIN SOD (PORCINE) 5000 UNITS/ML VIAL SQ SCH (06:11)
[2016-05-14] MEDS: MULTIVITAMINS/MINERALS THERAP 1 TAB PO SCH (09:34)
[2016-05-14] MEDS: PERCOCET 5MG/325MG TAB PO SCH ×3 (09:34→20:08)
[2016-05-14] MEDS: PREGABALIN 75 MG CAP(LYRICA) PO SCH ×2 (09:34→20:07)
[2016-05-14] MEDS: PANTOPRAZOLE 40MG TAB (PROTONIX) PO SCH (09:34)
[2016-05-14] MEDS: ASPIRIN 81 MG ENTERIC TAB PO SCH (09:34)
[2016-05-14] MEDS: rOPINIRole 1MG TAB PO SCH ×3 (09:34→20:07)
[2016-05-14] MEDS: LISINOPRIL 20 MG TAB PO SCH (09:36)
[2016-05-14] MEDS: CARVedilol 12.5 MG TAB PO SCH ×2 (09:37→20:07)
[2016-05-14] MEDS: ENOXAPARIN 30 MG/0.3 ML SYR (J1650) SC SCH (20:07)
[2016-05-15] MEDS: PREGABALIN 75 MG CAP(LYRICA) PO SCH ×2 (08:07→20:53)
[2016-05-15] MEDS: PANTOPRAZOLE 40MG TAB (PROTONIX) PO SCH (08:07)
[2016-05-15] MEDS: rOPINIRole 1MG TAB PO SCH ×3 (08:07→20:53)
[2016-05-15] MEDS: MULTIVITAMINS/MINERALS THERAP 1 TAB PO SCH (08:07)
[2016-05-15] MEDS: LISINOPRIL 20 MG TAB PO SCH (08:08)
[2016-05-15] MEDS: CARVedilol 12.5 MG TAB PO SCH ×2 (08:08→20:53)
[2016-05-15] MEDS: ASPIRIN 81 MG ENTERIC TAB PO SCH (08:08)
[2016-05-15] MEDS: PERCOCET 5MG/325MG TAB PO SCH ×3 (08:09→20:54)
[2016-05-15 08:34] VITALS: BP 170/80
[2016-05-15] MEDS: ENOXAPARIN 30 MG/0.3 ML SYR (J1650) SC SCH (20:53)
[2016-05-16 08:00] VITALS: BP 170/80
[2016-05-16] MEDS: PANTOPRAZOLE 40MG TAB (PROTONIX) PO SCH (08:28)
[2016-05-16] MEDS: PERCOCET 5MG/325MG TAB PO SCH ×3 (08:29→21:11)
[2016-05-16] MEDS: MULTIVITAMINS/MINERALS THERAP 1 TAB PO SCH (08:29)
[2016-05-16] MEDS: ASPIRIN 81 MG ENTERIC TAB PO SCH (08:29)
[2016-05-16] MEDS: rOPINIRole 1MG TAB PO SCH ×3 (08:29→21:08)
[2016-05-16] MEDS: PREGABALIN 75 MG CAP(LYRICA) PO SCH ×2 (08:31→21:08)
[2016-05-16] MEDS: LISINOPRIL 20 MG TAB PO SCH (08:38)
[2016-05-16] MEDS: CARVedilol 12.5 MG TAB PO SCH ×2 (08:38→21:09)
[2016-05-16] MEDS: ENOXAPARIN 30 MG/0.3 ML SYR (J1650) SC SCH (21:09)
[2016-05-17] MEDS: rOPINIRole 1MG TAB PO SCH (08:11)
[2016-05-17] MEDS: PANTOPRAZOLE 40MG TAB (PROTONIX) PO SCH (08:11)
[2016-05-17] MEDS: PREGABALIN 75 MG CAP(LYRICA) PO SCH (08:11)
[2016-05-17] MEDS: ASPIRIN 81 MG ENTERIC TAB PO SCH (08:11)
[2016-05-17 08:12] VITALS: BP 142/86
[2016-05-17] MEDS: ESCITALOPRAM OXALATE 10 MG TAB (LEXAPRO) PO SCH (08:12)
[2016-05-17] MEDS: LISINOPRIL 20 MG TAB PO SCH (08:12)
[2016-05-17] MEDS: MULTIVITAMINS/MINERALS THERAP 1 TAB PO SCH (08:12)
[2016-05-17] MEDS: CARVedilol 12.5 MG TAB PO SCH (08:12)
[2016-05-17] MEDS: PERCOCET 5MG/325MG TAB PO SCH (08:12)
[2016-05-17 08:17] VITALS: BP 142/86
[2016-05-17] MEDS ORDERED: LISI-538 PO (08:51)
--- NOTE | 2016-05-17 09:01 | DS.PDOC ---
Discharge Summary General Date of Admission May 02, 2016 at 11:43 Date of Discharge 05/17/16 Attending Physician: LILLIE GOODMAN MD Discharge Summary PROCEDURES PERFORMED DURING STAY: None. COMPLICATIONS/CHIEF COMPLAINT: Sepsis Due To Cellulitis ADMISSION/DISCHARGE DIAGNOSES: 1. Sepsis secondary to lower extremity cellulitis 2. CK D stage III 3. Hypertension 4. Chronic lower back pain 5. Anxiety 6. Chronic venous stasis HISTORY OF PRESENT ILLNESS/HOSPITAL COURSE: This is a 71-year-old female past mental history of Parkinson's, spinal stenosis , recurrent UTIs, history of left humerus fracture, hypertension, and recurrent cellulitis of the lower 70s who presents complaining of generalized weakness having fallen onto the floor, as she missed the chair. Patient states that her helped her down to the floor, she did not have any head trauma nor did she have loss of consciousness. The patient states she's also been short of breath over the past 3 days prior to admission, however no cough, recent travels, dyspnea on exertion. No chest pain/palpitations. States she's feeling better at this time. In the ED patient was found to have cellulitis of lower extremity, with notable leukocytosis as well as hypoxia and was started on broad-spectrum antibiotics for sepsis. Patient was noted to be bacteremic with PSEUDOMONAS AERUGINOSA, remained hemodynamically stable and completed her course of antibiotics. Patient also participated with physical therapy however needed additional rehabilitation given her recent illness. She is now hemodynamically stable and ready for discharge. DISCHARGE MEDICATIONS: Please see below. ALLERGIES: Please see below. PHYSICAL EXAMINATION ON DISCHARGE: VITAL SIGNS: Please see below. General: No acute distress, laying comfortably in bed. HEENT: Moist mucous membranes. Neck: No JVD or lymphadenopathy Cardiac: RRR, No murmurs Pulm: Diminished breath sounds at the bases b/l. No wheezing,no rhonchi Abd: NT/ND + BS. Ext: Cellulitis has resolved. Distal pulses intact. Trace to 1+ Pitting edema BLE. LABORATORY DATA: Please see below. IMAGING: LE u/s 05/02/16 IMPRESSION: No evidence of DVT in left lower extremity.. Left tibial x ray 05/02/16 Impression: No acute fracture dislocation in the left tibial and fibular shaft. CXR 05/02/16 Impression: Mild cardiomegaly without change. Bibasilar atelectasis. Prominence of the interstitium contributed to by portable technique and large body habitus. CTA Chest 05/02/16 Impression: Limited study due to large body habitus and extensive streak artifact especially within the superior vena cava. The pulmonary arteries are opacified through the lobar artery levels bilaterally without visualized filling defect . The more peripheral pulmonary arteries cannot be adequately assessed due to limitations described above. May consider follow-up study. VTE Prophylaxis ordered?: Yes DISCHARGE CONDITION: Stable DISPOSITION: Discharged to rehabilitation unit ACTIVITY: As tolerated DIET: Low-sodium DISCHARGE PLAN AND INSTRUCTIONS: 1. Follow-up with PCP 1-2 weeks. Follow-up with Dr. Schuler 2-3 weeks. Follow-up with primary care physician regarding restarting low-dose Lasix outpatient. TIME SPENT ON DISCHARGE: Greater than 30 minutes. Vital Signs/I&Os Vital Signs Date Time Temp Pulse Resp B/P Pulse Ox O2 Delivery O2 Flow Rate FiO2 05/17/16 08:17 97.1 72 18 142/86 96 Room Air I&O- Last 24 Hours up to 6 AM 05/17/16 05:59 Intake Total 900 ml Balance 900 ml Microbiology Microbiology 05/11/16 Urine Culture - Final, Complete Medications Scheduled Aspirin (Aspirin 81) 81 Mg Tab 81 MG PO DAILY Carvedilol (Carvedilol) 25 Mg Tab 25 MG PO BID Escitalopram Oxalate (Escitalopram Oxalate) 10 Mg Tab 10 MG PO DAILY Lisinopril (Lisinopril) 20 Mg Tab 20 MG PO DAILY Multivitamins *[facility] STOCKED* (Thera M Plus *[facility] STOCKED*) 1 Tab Tab 1 TAB PO DAILY Oxycodone/Acetaminophen (Percocet 5-325 mg) 1 Tab Tab 1 TAB PO TID Pantoprazole Sodium Sesquihydr (Protonix) 40 Mg Tab 40 MG PO DAILY Potassium Chloride (Klor-Con M20) 20 Meq Tabcr 20 MEQ PO DAILY Pregabalin (Lyrica) 75 Mg Cap 75 MG PO BID Ropinirole Hydrochloride (Ropinirole HCl) 1 Mg Tab 1 MG PO TID Scheduled PRN Docusate Sod/Senna (Senna S 8.6-50 mg) 1 Tab Tab 1 TAB PO DAILY PRN PRN CONSTIPATION Nystatin (Nystatin Powder) 100,000 Unit/Gm Pow 1 TOP BID PRN PRN RASH APPLIES UNDER ABDOMEN FOLDS Polyethylene Glycol (Miralax) 1 Pow Pow 17 GM PO DAILY PRN PRN CONSTIPATION Allergies Coded Allergies: Sulfa Antibiotics (Verified Allergy, Unknown, 01/17/14) LILLIE GOODMAN MD May 17, 2016 09:01
== END 2016-05-17 10:30 | DRG 872 ==
LOC: M ED 01:32 → M ED INP 11:43 → M PCU 16:15 → M MSPAV 05-04 16:47 → M MS5PR 05-12 16:06
PROVIDERS: ADMIT Internal Medicine; ATTEND Internal Medicine
DX: A41.9 Sepsis, unspecified organism (principal); L03.116 Cellulitis of left lower limb; Z68.43 Body mass index [BMI] 50.0-59.9, adult; I12.9 Hypertensive chronic kidney disease with stage 1 through stage 4 chronic kidney disease, or unspecified chronic kidney disease; N18.3 Chronic kidney disease, stage 3 (moderate); F41.9 Anxiety disorder, unspecified; G20 Parkinson's disease; R09.02 Hypoxemia; E66.01 Morbid (severe) obesity due to excess calories; M48.06 Spinal stenosis, lumbar region; I87.2 Venous insufficiency (chronic) (peripheral); Z87.440 Personal history of urinary (tract) infections; Z79.82 Long term (current) use of aspirin; Z79.891 Long term (current) use of opiate analgesic; Z79.899 Other long term (current) drug therapy

== ENCOUNTER → 2016-08-28 | Outpatient (REF) | payer MEDICARE, OTHER ==
[~2016-08-28] MED LIST changes: +IBUP200T45 PO; -IBUP20TA PO; +LISI-538 PO
[2016-08-28 13:14] LABS: BASO % 0.5 % (0.0-1.0); EOS # 0.2 K/mm3 (0.0-0.50); EOS % 4.2 % (0.0-3.0); LARGE UNSTAINED CELL # 0.1 K/mm3 (0.0-0.4); LYMPH % 18.3 % (24.0-44.0); MEAN CORPUSCULAR HEMOGLOBIN 25.7 pg (27.0-33.0); MEAN CORPUSCULAR HGB CONC 30.9 g/dl (32.0-36.5); MEAN CORPUSCULAR VOLUME 83.3 fl (80.0-96.0); MONO # 0.3 K/mm3 (0.0-0.8); MONO % 5.5 % (0.0-5.0); NEUTROPHILS # 3.3 K/mm3 (1.8-7.7); NEUTROPHILS % 69.4 % (36.0-66.0); PLATELET COUNT, AUTOMATED 116 k/mm3 (150-450); RED CELL DISTRIBUTION WIDTH 15.4 % (11.5-14.5); WHITE BLOOD COUNT 4.8 K/mm3 (4.0-10.0)
[2016-08-28 13:29] LABS: CREATININE FOR GFR 1.15 MG/DL (0.55-1.02); GLOMERULAR FILTRATION RATE 49.8 (>45); POTASSIUM SERUM 4.1 MEQ/L (3.5-5.1)
[2016-08-28 14:17] LABS: ERYTHROCYTE SEDIMENTATION RATE 34 mm/hr (0-30)
== END ==
LOC: M SFHCPLAZ 11:19
PROVIDERS: ATTEND Internal Medicine Infectious Disease
DX: R78.81 Bacteremia (principal); L03.119 Cellulitis of unspecified part of limb; L84 Corns and callosities; M48.07 Spinal stenosis, lumbosacral region; G20 Parkinson's disease; E66.9 Obesity, unspecified; M86.272 Subacute osteomyelitis, left ankle and foot
CPT/HCPCS: 80048; 85025; 85652; 86140; G0463

== ENCOUNTER → 2016-09-13 | Outpatient (REF) | payer MEDICARE, OTHER ==
[2016-09-13 16:08] LABS: BASO % 0.5 % (0.0-1.0); EOS # 0.2 K/mm3 (0.0-0.50); EOS % 4.3 % (0.0-3.0); LARGE UNSTAINED CELL # 0.1 K/mm3 (0.0-0.4); LARGE UNSTAINED CELL % 2.4 % (0.0-4.0); LYMPH # 0.9 K/mm3 (1.5-4.5); LYMPH % 15.5 % (24.0-44.0); MEAN CORPUSCULAR HEMOGLOBIN 26.3 pg (27.0-33.0); MEAN CORPUSCULAR HGB CONC 32.4 g/dl (32.0-36.5); MEAN CORPUSCULAR VOLUME 81.1 fl (80.0-96.0); MONO # 0.4 K/mm3 (0.0-0.8); NEUTROPHILS # 3.6 K/mm3 (1.8-7.7); NEUTROPHILS % 69.3 % (36.0-66.0); PLATELET COUNT, AUTOMATED 154 k/mm3 (150-450); RED CELL DISTRIBUTION WIDTH 15.3 % (11.5-14.5); WHITE BLOOD COUNT 5.2 K/mm3 (4.0-10.0)
[2016-09-13 16:09] LABS: CALCIUM LEVEL 9.1 MG/DL (8.8-10.2); CREATININE FOR GFR 1.15 MG/DL (0.55-1.02); GLOMERULAR FILTRATION RATE 49.8 (>45); POTASSIUM SERUM 4.2 MEQ/L (3.5-5.1)
[2016-09-13 19:01] LABS: ERYTHROCYTE SEDIMENTATION RATE 35 mm/hr (0-30)
== END ==
LOC: M SFHCPLAZ 15:37
PROVIDERS: ATTEND Internal Medicine Infectious Disease
DX: R78.81 Bacteremia (principal)

== ENCOUNTER → 2017-11-20 | Outpatient (REF) | payer MEDICARE, OTHER ==
[2017-11-20 15:53] LABS: BASO % 0.4 % (0.0-1.0); EOS # 0.1 10^3/uL (0.0-0.50); HEMATOCRIT 54.5 % (36.0-47.0); HEMOGLOBIN 15.8 g/dl (12.0-15.5); IMMATURE GRANULOCYTE % 0.4 % (0-3.0); LYMPH # 0.7 10^3/uL (1.5-4.5); LYMPH % 13.3 % (24.0-44.0); MEAN CORPUSCULAR HEMOGLOBIN 27.6 pg (27.0-33.0); MEAN CORPUSCULAR VOLUME 95.1 fl (80.0-96.0); MONO # 0.5 10^3/uL (0.0-0.8); MONO % 9.9 % (0.0-5.0); NEUTROPHILS # 3.7 10^3/uL (1.8-7.7); PLATELET COUNT, AUTOMATED 104 10^3/uL (150-450); RED BLOOD COUNT 5.73 10^6/uL (4.00-5.40); RED CELL DISTRIBUTION WIDTH 16.5 % (11.5-14.5)
[2017-11-20 15:54] LABS: C REACTIVE PROTEIN QUANTITATIV 0.31 MG/DL (0.00-0.30)
[2017-11-20 16:17] LABS: ERYTHROCYTE SEDIMENTATION RATE 1 mm/hr (0-30)
== END ==
LOC: M SFHCPLAZ 13:10
DX: L03.119 Cellulitis of unspecified part of limb (principal)
CPT/HCPCS: 86140

== ENCOUNTER → 2018-08-16 | Outpatient (CLI) | payer MEDICARE, OTHER ==
[~2018-08-16] MED LIST changes: -ALTA10CA3 PO; +ALTA1CAP3 PO; +ALTA1CAP4 PO; -ALTA5CAP3 PO; -ASPI1TAB PO; +ASPI81TA26 PO; +BACITAB PO; -BACITAB3 PO; +CHLO125TA PO; -CHLO25TA PO; +CIPR-249 PO; -CIPR500T89 PO; +KEFL500C17 PO; -KEFL500C7 PO; +KLOR20TA42 PO; -LASI20TA PO; +LASI20TA3 PO; -LASI40TA PO; +LASI40TA9 PO; +LEVA1TAB2 PO; -LEVA500T PO; -LIDO5DIS36 TD; +LIDO5DIS41 TD; +MILK120011 PO; -MILKSUS PO; -NYST100024 TOP; +NYST1POW9 TOP; +PERC5TAB12 PO; -PERC5TAB6 PO; -POTA20TA PO; -RAMI10CA PO; +RAMI1CAP24 PO; +RAMI1CAP26 PO; -RAMI5CA PO; +SENN-50 PO; +SENN1TAB41 PO; -SENN8.6T54 PO; -SENN8.6T7 PO; -ZOFR20TA IV; +ZOFR4TAB16 IV
== END ==
LOC: M SLEEP 19:43
PROVIDERS: ATTEND Nurse Practitioner Family
DX: G47.33 Obstructive sleep apnea (adult) (pediatric) (principal)

== ENCOUNTER → 2019-01-14 | Outpatient (CLI) | payer MEDICARE, OTHER ==
--- NOTE | 2019-01-14 13:48 | PFTRPT ---
Height: 53.50 Inches Weight: 275.00 Lbs BSA: 1.97 Diagnosis: G47.33 DATE OF PROCEDURE: 01/14/2019 ORDERED BY: Gia Schultz Spirometry: Pre and post bronchodilator study of excellent technical quality. Forced vital capacity reduced. FEV1 in proportion. Obstructive index is, therefore, normal. Flow Volume Loop: Expiratory limb of the flow volume loop does suggest significant flow rate limitation. Borderline bronchodilator response is identified. Lung Volumes: Slow vital capacity does suggest some underlying air trapping. Patient was unable to perform adequate plethysmography maneuvers. Diffusing Capacity: Diffusing capacity severely reduced but does correct for alveolar volume. IMPRESSION: Suspect significant obstructive defect with air trapping versus true concomitant restriction. Clinical correlation with the above is necessary. MTDD
== END ==
LOC: M CARPUL 12:46
PROVIDERS: ATTEND Nurse Practitioner Family
DX: G47.33 Obstructive sleep apnea (adult) (pediatric) (principal)